=== PATIENT | male | born 1930 | race Hispanic/Latino ===

== ENCOUNTER 2017-10-16 18:44 | Emergency (ER) | payer MEDICARE ==
[2017-10-16] MEDS ORDERED: Acetaminophen 500 MG TAB ONE (19:07)
[2017-10-16 20:09] LABS: #Eosinphils 0.1 thou/uL (0.0-0.7); #Lymphocytes 0.6 thou/uL (1.20-3.40); #Monocytes 0.6 thou/uL (0.11-0.59); #Neutrophils 7.3 thou/uL (1.40-6.50); %Basophils 0.2 % (0.0-1.0); %Eosinophils 0.8 % (0.0-10.0); %Lymphocytes 7.1 % (21.0-51.0); %Monocytes 6.9 % (0.0-10.0); Hemoglobin 11.4 g/dL (14.0-18.0); Mean Corpuscular HGB CONC 32.3 g/dL (32.0-36.0); Mean Corpuscular Hemoglobin 28.9 pg (27.0-31.0); Mean Corpuscular Volume 89.3 fl (80.0-94.0); Mean Platelet Volume 6.2 fL (7.4-10.4); Platelet Count 290 thou/uL (130-400); RBC Distribution Width 12.2 % (11.5-14.5); Red Blood Cell (RBC) Count 3.96 mill/uL (4.70-6.10); White Blood Cell (WBC) Count 8.6 thou/uL (4.8-10.8)
[2017-10-16 20:25] LABS: ALT (SGPT) 10 U/L (8-55); AST (SGOT) 18 U/L (5-34); Albumin 3.3 g/dL (3.4-4.8); Alkaline Phosphatase 58 U/L (40-150); Anion Gap 13 mmol/L (10-20); BUN (Urea Nitrogen) 12 mg/dL (8.4-25.7); Bilirubin, Total 1.4 mg/dL (0.2-1.2); CK (CPK) 188 U/L (30-200); Calc. Creatinine Clearance 0 mL/min (70-130); Calcium 9.6 mg/dL (7.8-10.44); Carbon Dioxide 23 mmol/L (23-31); Chloride 103 mmol/L (98-107); Estimated GFR-MDRD 57; Globulin 3.5 g/dL (2.4-3.5); Glucose 126 mg/dL (83-110); Potassium 3.7 mmol/L (3.5-5.1); Protein, Total 6.8 g/dL (5.8-8.1); Sodium 135 mmol/L (136-145)
[2017-10-16 20:28] LABS: CKMB 3.4 ng/mL (0-6.6); Troponin I 0.089 ng/mL (< 0.028)
[2017-10-16 20:30] LABS: Bilirubin Negative (Negative); Blood, Urine Trace (Negative); Clarity CLEAR (Clear); Glucose, Urine (Dipstick) Negative (Negative); Leukocyte Negative (Negative); Nitrite Negative (Negative); Protein, Urine (Dipstick) 100 mg/dL (Neg-Trace); Specific Gravity, Urine 1.022 (1.002-1.036); pH, Urine 5.5 (5.0-9.0)
[2017-10-16 20:32] LABS: Bacteria/HPF None Seen HPF (None Seen); Hyaline Casts/LPF 0-3 HYALINE CAST LPF (0-3 Hyaline); Pathc Cast-AUWi Flag 0.54 (0-2.49); Squamous Epithelial 0-3 HPF (0-3); WBC/HPF 0-3 HPF (0-3)
--- NOTE | 2017-10-16 21:26 | RAD ---
AP VIEW OF THE CHEST: INDICATIONS: History of falls with cough. COMPARISON: Prior exam dated 05/13/2017. FINDINGS: The cardiomediastinal silhouette is normal. There are vascular calcifications involving the aortic a rch, which are stable. No confluent air space opacity, pleural effusion, or pneumothorax is evident. No definite acute osseous abnormality is identified. IMPRESSION: No acute cardiopulmonary abnormality. POS: [facility]
--- NOTE | 2017-10-16 21:28 | RAD ---
FOUR VIEWS OF THE LEFT ELBOW: INDICATIONS: Fall with left elbow pain. FINDINGS: There is no joint capsular distention. There is mild osteoarthrosis of the left elbow joint. Radial capitellar alignment is normal appearing. Enthesophyte change is seen off the olecranon. IMPRESSION: 1. No acute osseous abnormality. 2. Mild left elbow osteoarthrosis. POS: [facility]
== END 2017-10-16 21:36 | disposition home or self-care (01) ==
LOC: ERS 18:44
DX: J11.1 Influenza due to unidentified influenza virus with other respiratory manifestations (principal); I48.91 Unspecified atrial fibrillation; I49.9 Cardiac arrhythmia, unspecified; I10 Essential (primary) hypertension; J45.909 Unspecified asthma, uncomplicated; Z86.73 Personal history of transient ischemic attack (TIA), and cerebral infarction without residual deficits; Z87.891 Personal history of nicotine dependence
CPT/HCPCS: 36415; 71010; 80053; 81003; 81015; 82550; 82553; 83605; 84484; 85025; 87086; 93005

== ENCOUNTER 2017-10-27 08:09 | Observation (INO) | payer MEDICARE ==
[2017-10-27 09:36] LABS: #Basophils 0.1 thou/uL (0.0-0.2); #Eosinphils 0.3 thou/uL (0.0-0.7); #Lymphocytes 1.5 thou/uL (1.20-3.40); #Monocytes 0.8 thou/uL (0.11-0.59); %Basophils 0.6 % (0.0-1.0); %Lymphocytes 15.3 % (21.0-51.0); %Monocytes 8.4 % (0.0-10.0); %Neutrophils 72.7 % (42.0-75.0); Hemoglobin 12.1 g/dL (14.0-18.0); Mean Corpuscular HGB CONC 31.5 g/dL (32.0-36.0); Mean Corpuscular Hemoglobin 28.2 pg (27.0-31.0); Mean Corpuscular Volume 89.5 fl (80.0-94.0); Mean Platelet Volume 7.2 fL (7.4-10.4); Platelet Count 321 thou/uL (130-400); RBC Distribution Width 12.1 % (11.5-14.5); Red Blood Cell (RBC) Count 4.28 mill/uL (4.70-6.10); White Blood Cell (WBC) Count 9.6 thou/uL (4.8-10.8)
[2017-10-27 09:56] LABS: ALT (SGPT) 9 U/L (8-55); AST (SGOT) 15 U/L (5-34); Albumin 3.5 g/dL (3.4-4.8); Alkaline Phosphatase 64 U/L (40-150); Anion Gap 10 mmol/L (10-20); BUN (Urea Nitrogen) 13 mg/dL (8.4-25.7); Bilirubin, Total 1.2 mg/dL (0.2-1.2); CK (CPK) 47 U/L (30-200); Calc. Creatinine Clearance 0 mL/min (70-130); Carbon Dioxide 26 mmol/L (23-31); Chloride 106 mmol/L (98-107); Estimated GFR-MDRD 57; Globulin 3.9 g/dL (2.4-3.5); Glucose 101 mg/dL (83-110); Lipase 9 U/L (8-78); Protein, Total 7.4 g/dL (5.8-8.1); Sodium 138 mmol/L (136-145)
[2017-10-27 09:57] LABS: CKMB 1.2 ng/mL (0-6.6); Troponin I 0.027 ng/mL (< 0.028)
--- NOTE | 2017-10-27 10:11 | RAD ---
2 VIEWS CHEST: Date: 10/27/17 PROVIDED CLINICAL HISTORY: Right-sided chest pain. FINDINGS: Comparison made with the study dated 10/16/17. Cardiac silhouette is upper limits of normal in size. There is stable blunting of the right costophre paige angle that may reflect pleural fluid and/or pleural scarring. The lungs appear clear. There is no pneumothorax apparent. The bony thorax appears grossly intact. IMPRESSION: No evidence for an acute cardiopulmonary process. POS: [facility]
--- NOTE | 2017-10-27 11:09 | CT ---
CT PULMONARY ANGIOGRAM WITH IV CONTRAST AND 3D MIP RECONSTRUCTIONS: Date: 10/27/17 PROVIDED CLINICAL HISTORY: Right-sided chest pain. FINDINGS: Comparison made with the study dated 05/08/17. There is no evidence for central or segmental pulmonary embolus. Vascular calcification, including co ronary calcium, is seen. There is no evidence for thoracic lymph node enlargement. There is a small right pleural effusion. There is a heterogeneous predominantly enhancing mass at the right lung base measuring at least 5.3 cm in greatest transverse dimension. It is uncertain on the b asis of this examination whether this mass is pleural, diaphragmatic, or less likely hepatic in origi n. There is some thickening of the adjacent pleura. There is volume loss at the right lung base. Lung s appear otherwise clear. No left-sided pleural effusion, additional area of pleural abnormality, or pneumothorax apparent. The visualized portions of the upper abdomen demonstrate an otherwise unremarkable CT appearance. The osseous structures demonstrate no concerning osteoblastic or osteolytic lesions. IMPRESSION: 1. Heterogeneously enhancing mass involving the region of the posterior right hemidiaphragm as descr ibed above. The exact origin of this mass is not certain on the basis of this study. Pleural, diaphra gmatic, and less likely hepatic etiologies are possible. Neoplasm is favored, though infection could also be considered. 2. Mild right pleural effusion with some associated pleural thickening. 3. No evidence for central or segmental pulmonary embolus. 4. Vascular calcification including coronary calcium. POS: [facility]
[2017-10-27] MEDS ORDERED: cefTRIAXone\\ROCEPHIN 2 GM in Sodium Chloride 0.9% 100 ML IVPB SCH (11:30)
[2017-10-27] MEDS ORDERED: Azithromycin 500 MG in Sodium Chloride 0.9% 250 ML 250 ML IVPB ONE (11:30)
[2017-10-27] MEDS ORDERED: Iopamidol 370 76% 100 ML VIAL ONE (11:54)
[2017-10-27] MEDS ORDERED: Ondansetron ODT 4 MG TAB SL PRN (13:13)
[2017-10-27] MEDS ORDERED: Acetaminophen 325 MG TAB PO PRN (13:13)
[2017-10-27] MEDS ORDERED: Ondansetron HCl/PF 4 MG/2 ML Vial IVP PRN ×2 (13:13→15:44)
[2017-10-27 13:35] VITALS: BMI 26.5
[2017-10-27] MEDS ORDERED: hydrALAZINE 20 MG/ML VIAL SLOW IVP PRN (15:44)
[2017-10-27] MEDS ORDERED: Acetaminophen 500 MG TAB PO PRN (15:44)
[2017-10-27] MEDS ORDERED: Ondansetron ODT 4 MG TAB PO PRN (15:44)
[2017-10-27] MEDS ORDERED: cloNIDine 0.1 MG TAB PO PRN (15:44)
[2017-10-27] MEDS ORDERED: traMADol HCl 50 MG TAB PO PRN (15:44)
[2017-10-27] MEDS ORDERED: Benzonatate 100 MG CAP PO PRN (15:59)
[2017-10-27] MEDS: Mometasone/Formoterol 120 PUFF INHALER INH SCH (19:20)
[2017-10-27] MEDS: Famotidine 20 MG TAB PO SCH (20:10)
[2017-10-27] MEDS: Metoprolol Tartrate 25 MG TAB PO SCH ×2 (20:11→23:02)
[2017-10-27] MEDS ORDERED: Finasteride 5 MG TAB PO SCH (21:00)
[2017-10-27] MEDS ORDERED: Metoprolol Tartrate 50 MG TAB PO SCH (21:00)
[2017-10-27] MEDS ORDERED: Terazosin HCl 5 MG CAP PO SCH (21:00)
[2017-10-27] MEDS ORDERED: Amiodarone 200 MG TAB PO SCH (21:00)
--- NOTE | 2017-10-27 21:16 | HP ---
DATE OF ADMISSION: 10/27/2017 PRIMARY CARE PHYSICIAN: Dr. Nelly Hernandez. CHIEF COMPLAINT: Rib pain. HISTORY OF PRESENT ILLNESS: This is an 87-year-old male who presented to [facility] complaining of right lateral and lower rib pain over the last 1-2 weeks worsening in the last 24 hours. Patient states with direct pressure to his rib cage, lying on his rib cage, cough ing, or taking a deep breath. He notices pain in the area. Patient states he had a fall approximate ly 5 years prior to this evaluation and thinks he may have had an injury to the area, but is unsure. Patient states he was diagnosed with influenza at the end of 09/2017 and treated with Tamiflu. Cecile ent denies any specific prominent cough, fever, chills, exposure history, or family members with fanny lar symptoms. Patient denied any recent fall or injury, swelling to the rib cage, redness, or skin r aida. Patient states he is currently on his immunizations and denies any recent new medications other than the Tamiflu, which he took at the end of 09/2017. Patient denies any prominent weight loss, ni ght sweats, hemoptysis, change to bowel habits, appetite, nausea, vomiting, or dysuria. Patient andres ed taking any other home remedies for relief other than limiting lying on his right side at nighttime . In the emergency room, patient underwent general evaluation including chest imaging showing plain radiographs of the chest showing no acute process. CT angiogram of the chest dated 10/27/2017 showed questionable heterogeneous mass in the posterior right lower lobe with unclear etiology. Mild right pleural effusion noted with some pleural thickening with questionable scarring. No evidence for pul monary embolus was noted. Patient received IV Rocephin and Zithromax as well as bronchodilator thera py x1 dose in the emergency room. PAST MEDICAL HISTORY: 1. Atrial fibrillation with chronic anticoagulation. 2. Hypertension. 3. Dyslipidemia. 4. History of diastolic heart failure. 5. Chronic kidney disease, stage 2-3. 6. Gastroesophageal reflux disease. 7. History of TIA x2. 8. Benign prosthetic hyperplasia. 9. History of questionable empyema. PAST SURGICAL HISTORY: 1. Status post cardiac ablation. 2. Status post left total knee arthroplasty. 3. Status post right rotator cuff repair. 4. Status post cholecystectomy. CURRENT MEDICATIONS: List may not be complete and will need to be confirmed with family members: 1. Amiodarone 200 mg p.o. t.i.d. 2. Lipitor 20 mg p.o. at bedtime. 3. Proscar 5 mg p.o. at bedtime. 4. Hydrochlorothiazide 12.5 mg p.o. daily. 5. Lisinopril 20 mg 1 tab p.o. daily. 6. Lopressor 50 mg p.o. b.i.d. 7. Xarelto 15 mg p.o. daily. 8. Hytrin 5 mg p.o. at bedtime. ALLERGIES: PENICILLIN. FAMILY HISTORY: Positive for diabetes. SOCIAL HISTORY: Patient is . Resides in [place], [place] living independently in an apartment. 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 No current alcohol, tobacco, or illicit drug use. Remote history of tobacco use, quitting greater than 30 years prior to this evaluation. Patient richter s ambulate with the use of a 4-prong cane. REVIEW OF SYSTEMS: The following complete review of systems was otherwise negative, except as stated per HPI: Constitutional: Weight loss or gain, ability to conduct usual activities. Skin: Rash, itching. Eyes: Double vision, pain. ENT/Mouth: Nose bleeding, neck stiffness, pain, tenderness. Cardiovascular: Palpitations, dyspnea on exertion, orthopnea. Respiratory: Shortness of breath, wheezing, cough, hemoptysis, fever, or night sweats. Gastrointestinal: Poor appetite, abdominal pain, heartburn, nausea, vomiting, constipation, or diarr hea. Genitourinary: Urgency, frequency, dysuria, nocturia. Musculoskeletal: Pain, swelling. Neurologic/Psychiatric: Anxiety, depression. Allergy/Immunologic: Skin rash, bleeding tendency. PHYSICAL EXAMINATION: VITAL SIGNS: On admission blood pressure 150/66, pulse 55, respiratory rate 18, temperature 98.8 deg jerry Fahrenheit, O2 saturation 95% on room air. GENERAL APPEARANCE: This is an 87-year-old male, alert and oriented x3, pleasant, conversan t, appearing younger than stated age in no acute distress. HEENT: Pupils are equal, round, and reactive to light and accommodation. Extraocular muscles are in tact. No scleral icterus, no conjunctival injection. Nares patent. OP is clear. NECK: Supple. No cervical adenopathy, no thyromegaly, no carotid bruits, no JVD appreciated. Cervi anju spine with full active and passive range of motion. No meningeal signs appreciated. CHEST: Lungs are clear to auscultation bilaterally. Mild tenderness to palpation of the right later al rib cage in the mid axillary line without palpable mass. No erythema or skin rash noted. CARDIOVASCULAR: S1, S2 with 2/6 systolic ejection murmur in the right upper sternal border. ABDOMEN: Rounded, soft, nontender, nondistended. Bowel sounds are positive in all four quadrants. There is no hepatosplenomegaly, no abdominal bruits, no rebound or guarding appreciated. EXTREMITIES: Warm and dry with fair turgor. No clubbing, cyanosis, or asymmetric edema appreciated. Pulses palpable distally at the dorsalis pedis, posterior tibial, and popliteal arteries bilaterall y. Capillary refill less than 2 seconds. NEUROLOGIC: Cranial nerves II-XII are grossly intact. No focal or lateralizing signs appreciated. PERTINENT LABORATORY AND X-RAY FINDINGS: Basic metabolic profile within normal limits. LFTs within normal limits. BNP 327 previously noted 552 on 05/14/2017. Lipase 9. CBC showed a white blood cell count of 9.6, hemoglobin 12, hematocrit 38, platelet count 321 with 73% neutrophils. Portable chest x-ray dated 10/27/2017 showed no acute cardiopulmonary process. Blunting of the right costophrenic angle reflecting pleural fluid and/or scarring. CT angiogram of the chest dated 10/27/2017 showed qu estionable enhancing mass in the posterior right hemidiaphragm. Exact origin is unclear on the basis of this study. Mild right pleural effusion/scarring noted. No evidence for pulmonary embolus. EKG dated 10/27/2017 by my interpretation shows sinus bradycardia with heart rates in the 50s. Normal R -wave progression noted in the precordial leads. Right bundle branch block pattern noted. Left axis deviation noted. No acute ST-T wave changes appreciated. ASSESSMENT AND PLAN: 1. Right lateral chest wall pain. Etiology is unclear. Questionable musculoskeletal pain versus in trathoracic process. CT imaging of the chest showing questionable mass versus scarring or pleural th ickening from prior infection. No current evidence to suggest an acute infectious process. We will consult Pulmonology Service for review of CT imaging to obtain further recommendations and an opinion regarding both processes. Continue pain control as clinically indicated. 2. Chronic kidney disease, stage 2-3. Stable currently. Avoid nephrotoxic agents and contrast medi a. Repeat creatinine in the a.m. 3. History of atrial fibrillation with current sinus mechanism. Continue symptomatic and supportive measures. Continue metoprolol 25 mg p.o. b.i.d. Continue Xarelto 15 mg p.o. daily. 4. Hypertension. Resume home antihypertensive regimen and monitor clinical response. 5. Prophylaxis. Sequential compression devices while in bed. Pepcid 20 mg p.o. b.i.d. 6. Code status is FULL. Surrogate medical decision maker is patient's son.
[2017-10-28 04:40] LABS: Anion Gap 4 mmol/L (10-20); BUN (Urea Nitrogen) 13 mg/dL (8.4-25.7); Calc. Creatinine Clearance 46 mL/min (70-130); Calcium 9.2 mg/dL (7.8-10.44); Carbon Dioxide 30 mmol/L (23-31); Chloride 106 mmol/L (98-107); Estimated GFR-MDRD 57; Glucose 97 mg/dL (83-110); Potassium 4.1 mmol/L (3.5-5.1); Sodium 136 mmol/L (136-145)
[2017-10-28 05:12] VITALS: BP 159/68
[2017-10-28 05:19] LABS: Band 2 % (5-11); Hemoglobin 10.3 g/dL (14.0-18.0); Lymphocytes 7 % (21-51); MDiff Complete? YES; Mean Corpuscular HGB CONC 31.6 g/dL (32.0-36.0); Mean Corpuscular Hemoglobin 28.3 pg (27.0-31.0); Mean Corpuscular Volume 89.4 fl (80.0-94.0); Mean Platelet Volume 6.7 fL (7.4-10.4); Monocytes 5 % (0-10); Neutrophil 86 % (42-75); PLT Morphology Comment Appears Adequate; Platelet Count 278 thou/uL (130-400); RBC Morphology Normal; Red Blood Cell (RBC) Count 3.64 mill/uL (4.70-6.10); White Blood Cell (WBC) Count 10.8 thou/uL (4.8-10.8)
[2017-10-28 08:05] VITALS: TEMP 98.6
[2017-10-28] MEDS: Mometasone/Formoterol 120 PUFF INHALER INH SCH (08:29)
--- NOTE | 2017-10-28 08:57 | ULT ---
RIGHT UPPER QUADRANT ULTRASOUND: Date: 10/28/17 CLINICAL HISTORY: Mass, right upper quadrant. FINDINGS: There is a heterogeneous region of echotexture abutting the posterior aspect of the right hepatic lob e. This is inseparable from the adjacent right pleura with complex adjacent right pleural fluid seen. There is a mild nodularity to the hepatic contour. Gallbladder is not visualized. The common duct is normal at 4.0 mm. IMPRESSION: Abnormal heterogeneous mass abutting the right hepatic lobe inseparable from the adjacent pleura with adjacent complex appearing right pleural fluid. This favors a mass that is extrinsic to the liver wh ich results in encroachment upon the hepatic parenchyma, although is difficult to further characteriz e. Entities such as pleural based malignancy or metastatic lesion should be considered. POS: [facility]
[2017-10-28] MEDS ORDERED: Lisinopril 20 MG TAB PO SCH (09:00)
[2017-10-28] MEDS ORDERED: Hydrochlorothiazide 25 MG TAB PO SCH (09:00)
[2017-10-28] MEDS ORDERED: Rivaroxaban 15 MG TAB PO SCH (09:00)
[2017-10-28] MEDS ORDERED: Amiodarone 200 MG TAB PO SCH (09:00)
[2017-10-28] MEDS: Metoprolol Tartrate 25 MG TAB PO SCH (09:19)
[2017-10-28] MEDS: Famotidine 20 MG TAB PO SCH (09:19)
--- NOTE | 2017-10-28 17:12 | DIS ---
DATE OF ADMISSION: 10/27/2017 DATE OF DISCHARGE: 10/28/2017 DISCHARGE DIAGNOSES: 1. Question of right lower lobe pneumonia versus mass with effusion. 2. Right lateral chest wall pain. 3. Chronic kidney disease stage II-III. 4. History of atrial fibrillation with current sinus mechanism on chronic anticoagulation with Xarel to. 5. Hypertension, stable. CONSULTATION: Dr. Bennett with Pulmonology Service. PERTINENT LABORATORY DATA AND X-RAY FINDINGS: Creatinine ranged between 1.20-1.21 with estimated GFR of 57. Calcium ranged between 9.2-10.0. LFTs within normal limits. Troponin negative x1. BNP 327 , previously noted 552, 05/14/2017, albumin 3.5, lipase 9. CBC showed a white blood cell count rangi ng between 9.6-10.8, hemoglobin ranged between 10.3-12.1, platelet count ranged between 278-321. Blo od cultures x2 from 10/27/2017 showed no growth to date. Portable chest x-ray dated 10/27/2017 showe d no acute cardiopulmonary process. Blunting of the right costophrenic angle noted. CT angiogram of the chest dated 10/27/2017 showed heterogeneous enhancing mass in the region of the posterior right hemidiaphragm. Exact origin uncertain. Mild associated right pleural effusion with pleural thickeni ng. No evidence for pulmonary embolus. Abdominal ultrasound dated 10/28/2017 showed heterogeneous m ass abutting the right hepatic lobe inseparable from adjacent pleura with complex appearing right ple ural fluid. Mass appears extrinsic to the liver. HOSPITAL COURSE: Patient was observed on the telemetry unit after initially presenting with right la teral chest wall pain. The patient underwent multiple chest imaging modalities including plain radio graphs. CT angiogram of the chest and abdominal ultrasound showing questionable mass-like density in the right lower lobe abutting the posterior hepatic lobe. The patient was placed on IV antibiotic t herapy after concern for possible infectious process with associated right pleural effusion. Telepho paige consultation was obtained by the Pulmonology Service with recommendations for outpatient followup and monitoring. The patient remained clinically stable throughout the hospital course with screenin g metabolic survey showing essentially negative findings. The patient remained afebrile, tolerated r egular oral intake and voiding appropriately. Telemetry monitoring showed sinus bradycardia without evidence of acute arrhythmia or dysrhythmia. The patient overall remained clinically stable through the hospital course and ready for discharge on 10/28/2017. DISCHARGE MEDICATIONS: 1. Levaquin 500 mg 1 tab p.o. daily x10 days. 2. Amiodarone 200 mg 1 tab p.o. daily. 3. Lipitor 20 mg p.o. at bedtime. 4. Tessalon Perles 100 mg p.o. t.i.d. p.r.n. 5. Symbicort 160/4.5 one puff inhaled b.i.d. 6. Proscar 5 mg p.o. at bedtime. 7. Hydrochlorothiazide 12.5 mg p.o. daily. 8. Lisinopril 20 mg 1 tab p.o. daily. 9. Metoprolol 25 mg p.o. b.i.d. 10. Xarelto 15 mg p.o. daily. 11. Hytrin 5 mg p.o. at bedtime. FOLLOWUP: The patient may follow up with his primary care provider, Dr. Nelly Hernandez within 7 days of discharge. The patient will also follow up with Dr. David Bennett within 7-10 days of discharge. CONDITION ON DISCHARGE: Stable. ACTIVITY: Ad luke. DIET: Regular. CODE STATUS: FULL. DISPOSITION: Home 10/28/2017.
== END 2017-10-28 12:18 | disposition home or self-care (01) ==
LOC: ERS 08:09 → 2SW 12:48
PROVIDERS: ADMIT Family Medicine; ATTEND Family Medicine
DX: R07.89 Other chest pain (principal); I13.0 Hypertensive heart and chronic kidney disease with heart failure and stage 1 through stage 4 chronic kidney disease, or unspecified chronic kidney disease; N18.3 Chronic kidney disease, stage 3 (moderate); I50.30 Unspecified diastolic (congestive) heart failure; I48.91 Unspecified atrial fibrillation; E78.5 Hyperlipidemia, unspecified; K21.9 Gastro-esophageal reflux disease without esophagitis; N40.0 Benign prostatic hyperplasia without lower urinary tract symptoms; Z79.01 Long term (current) use of anticoagulants; Z79.899 Other long term (current) drug therapy; Z88.0 Allergy status to penicillin; Z96.652 Presence of left artificial knee joint; Z90.49 Acquired absence of other specified parts of digestive tract; Z98.890 Other specified postprocedural states; Z87.891 Personal history of nicotine dependence; Z86.73 Personal history of transient ischemic attack (TIA), and cerebral infarction without residual deficits
CPT/HCPCS: 71046; 71275; 76705; 80048; 80053; 82550; 82553; 83690; 83880; 84484; 85007; 85025; 85027; 87040; 93005; 94640 ×3; 96365; 96367; 99285; G0378; 36415; J0456; J0696; J7050; J7620

== ENCOUNTER 2018-01-25 11:00 | Outpatient (CLI) | payer MEDICARE ==
[~2018-01-25 11:00] MED LIST: Iopamidol 370 76% 100 ML VIAL ONE
--- NOTE | 2018-01-25 12:38 | CT ---
CT THORAX WITH IV CONTRAST: 01/25/2018 HISTORY: Lung mass. Scarring. COMPARISON: 10/27/2017 FINDINGS: Again noted is a small right pleural effusion with passive atelectasis. Also, again noted is the het erogeneously enhancing mass like density at the right lung base, centered at the level of the diaphra gm, posteriorly. This has a multiloculated appearance and measures 8 cm x 3.5 cm on the current stud y and previously measured 5.3 cm in maximal dimensions on the prior exam. The exact location of this heterogeneous mass like structure is uncertain. I am unsure if this is in the right lung base or wh ether this is just beneath the hemidiaphragms in the right upper quadrant. Again, this is centered i n the region of the diaphragm. This could be related to an abscess collection/infection but, again, mass in this region is a possibility. The left lung is clear. Vascular calcifications are seen in the coronary arteries and thoracic aorta. No other interval damian ge. IMPRESSION: 1. Interval enlargement of the multiloculated cystic and solid structure at the right lung base, azeb tered in the region of the hemidiaphragm, posteriorly and posterolaterally. This could be related to an infectious process, but a neoplastic process is also a possibility. There is a stable small righ t pleural effusion and atelectasis with mild pleural thickening also noted at the right lung base. 2. Post cholecystectomy changes. 3. Prominent vascular calcifications. POS: [facility]
== END 2018-01-25 11:01 | disposition home or self-care (01) ==
LOC: CT 11:00
PROVIDERS: ATTEND Internal Medicine Pulmonary Disease
DX: R91.8 Other nonspecific abnormal finding of lung field (principal); J98.4 Other disorders of lung; J90 Pleural effusion, not elsewhere classified; J98.11 Atelectasis; I70.90 Unspecified atherosclerosis; Z98.890 Other specified postprocedural states; Z90.49 Acquired absence of other specified parts of digestive tract
CPT/HCPCS: 71260; 82565

== ENCOUNTER 2018-02-16 14:20 | Emergency (ER) | payer MEDICARE ==
[2018-02-16 14:54] LABS: Bilirubin Negative (Negative); Blood, Urine Negative (Negative); Clarity CLEAR (Clear); Glucose, Urine (Dipstick) Negative (Negative); Leukocyte Negative (Negative); Nitrite Negative (Negative); Protein, Urine (Dipstick) Negative (Neg-Trace); Specific Gravity, Urine 1.018 (1.002-1.036); pH, Urine 5.5 (5.0-9.0)
[2018-02-16 15:29] LABS: #Eosinphils 0.1 thou/uL (0.0-0.7); #Lymphocytes 1.3 thou/uL (1.20-3.40); #Monocytes 0.9 thou/uL (0.11-0.59); #Neutrophils 7.5 thou/uL (1.40-6.50); %Basophils 0.4 % (0.0-1.0); %Eosinophils 0.9 % (0.0-10.0); %Lymphocytes 13.2 % (21.0-51.0); %Monocytes 8.7 % (0.0-10.0); %Neutrophils 76.8 % (42.0-75.0); Hemoglobin 9.9 g/dL (14.0-18.0); Mean Corpuscular HGB CONC 32.3 g/dL (32.0-36.0); Mean Corpuscular Hemoglobin 26.4 pg (27.0-31.0); Mean Corpuscular Volume 81.7 fl (80.0-94.0); Mean Platelet Volume 6.8 fL (7.4-10.4); Platelet Count 323 thou/uL (130-400); RBC Distribution Width 13.7 % (11.5-14.5); Red Blood Cell (RBC) Count 3.76 mill/uL (4.70-6.10); White Blood Cell (WBC) Count 9.8 thou/uL (4.8-10.8)
--- NOTE | 2018-02-16 15:49 | RAD ---
THREE VIEWS LUMBAR SPINE 02/16/18 HISTORY: Low back pain. COMPARISON: None. FINDINGS: Five lumbar type vertebral bodies. Vertebral body height is maintained. No fracture. There is extensi ve osteophyte formation of the lumbar spine. Atherosclerosis is noted. IMPRESSION: Extensive degenerative changes with osteophyte formation. No obvious fractures. Barring any contraind ications, nonemergent MRI of the lumbar spine is recommended. POS: [facility]
[2018-02-16 15:56] LABS: ALT (SGPT) 8 U/L (8-55); AST (SGOT) 11 U/L (5-34); Albumin 2.8 g/dL (3.4-4.8); Alkaline Phosphatase 59 U/L (40-150); Anion Gap 4 mmol/L (10-20); BUN (Urea Nitrogen) 27 mg/dL (8.4-25.7); Bilirubin, Total 0.9 mg/dL (0.2-1.2); Calc. Creatinine Clearance 0 mL/min (70-130); Calcium 9.3 mg/dL (7.8-10.44); Carbon Dioxide 27 mmol/L (23-31); Chloride 105 mmol/L (98-107); Estimated GFR-MDRD 42; Globulin 3.4 g/dL (2.4-3.5); Glucose 105 mg/dL (83-110); Protein, Total 6.2 g/dL (5.8-8.1); Sodium 132 mmol/L (136-145)
== END 2018-02-16 17:35 | disposition home or self-care (01) ==
LOC: ERS 14:20
DX: M54.5 Low back pain (principal); I48.91 Unspecified atrial fibrillation; I10 Essential (primary) hypertension; J45.909 Unspecified asthma, uncomplicated; Z87.891 Personal history of nicotine dependence; Z79.899 Other long term (current) drug therapy
CPT/HCPCS: 36415; 72100; 80053; 81003; 85025

== ENCOUNTER 2018-02-25 19:51 | Observation (INO) | payer MEDICARE ==
[2018-02-25 20:54] LABS: #Lymphocytes 1.2 thou/uL (1.20-3.40); #Monocytes 0.9 thou/uL (0.11-0.59); #Neutrophils 9.3 thou/uL (1.40-6.50); %Basophils 0.2 % (0.0-1.0); %Eosinophils 0.4 % (0.0-10.0); %Lymphocytes 10.4 % (21.0-51.0); %Monocytes 7.6 % (0.0-10.0); %Neutrophils 81.5 % (42.0-75.0); Mean Corpuscular Hemoglobin 26.3 pg (27.0-31.0); Mean Platelet Volume 6.7 fL (7.4-10.4); Platelet Count 349 thou/uL (130-400); RBC Distribution Width 13.9 % (11.5-14.5); Red Blood Cell (RBC) Count 3.81 mill/uL (4.70-6.10); White Blood Cell (WBC) Count 11.4 thou/uL (4.8-10.8)
[2018-02-25 21:00] LABS: INR-International Normal Ratio 1.4; Prothrombin Time 16.9 SEC (12.0-14.7)
--- NOTE | 2018-02-25 21:01 | CT ---
CT OF THE BRAIN WITHOUT CONTRAST 02/25/18 INDICATION: Lightheaded and history of all hitting head earlier today. COMPARISON: Prior exam dated 05/08/17. FINDINGS: There is stable remote lacunar infarctions involving the left thalamus and right globus pallidus. The re is generalized cerebral and cerebellar atrophy. There is mild chronic small vessel white matter is chemic change which is similar to the comparison dated 05/08/17. No acute infarct, hemorrhage, or hyd rocephalus is present. Mastoid air cells are clear. The paranasal sinuses are clear. Skull is intact. IMPRESSION: 1. No acute intracranial abnormality. 2. Stable chronic findings as above. POS: [facility]
--- NOTE | 2018-02-25 21:03 | RAD ---
AP VIEW OF THE CHEST: 02/25/18 INDICATION: Fall with chest pain. FINDINGS: The lungs are clear. No pleural effusion or pneumothorax is grossly evident. No definite acute osseou s abnormality is evident. Heart size is within normal limits. There are vascular calcifications invol ving the aortic arch is stable to a comparison dated 10/16/17. IMPRESSION: No acute cardiopulmonary abnormality. POS: [facility]
--- NOTE | 2018-02-25 21:10 | CT ---
CT CERVICAL SPINE WITHOUT CONTRAST: 02/25/18 INDICATION: Fall with neck pain. FINDINGS: There is moderate to severe multilevel spondylosis of the cervical spine. No acute fracture or sublux ation is evident. Prevertebral soft tissues are within normal limits. Lung apices are clear. Cranioce rvical junction appears within normal limits. IMPRESSION: 1. No acute osseous abnormality. 2. 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 POS: [facility]
[2018-02-25 21:15] LABS: ALT (SGPT) 11 U/L (8-55); AST (SGOT) 14 U/L (5-34); Albumin 2.9 g/dL (3.4-4.8); Alkaline Phosphatase 61 U/L (40-150); Anion Gap 9 mmol/L (10-20); BUN (Urea Nitrogen) 31 mg/dL (8.4-25.7); Bilirubin, Total 0.8 mg/dL (0.2-1.2); Calc. Creatinine Clearance 0 mL/min (70-130); Calcium 9.6 mg/dL (7.8-10.44); Carbon Dioxide 26 mmol/L (23-31); Chloride 104 mmol/L (98-107); Estimated GFR-MDRD 38; Globulin 3.5 g/dL (2.4-3.5); Glucose 120 mg/dL (83-110); Potassium 4.4 mmol/L (3.5-5.1); Protein, Total 6.4 g/dL (5.8-8.1); Sodium 135 mmol/L (136-145)
[2018-02-25 21:18] LABS: CKMB 0.7 ng/mL (0-6.6); Troponin I Less than 0.010 ng/mL (< 0.028)
[2018-02-25] MEDS ORDERED: Ondansetron HCl/PF 4 MG/2 ML Vial IVP PRN ×2 (23:08→23:20)
[2018-02-25] MEDS ORDERED: Ondansetron ODT 4 MG TAB SL PRN (23:08)
[2018-02-25] MEDS ORDERED: Acetaminophen 325 MG TAB PO PRN ×2 (23:08→23:20)
[2018-02-25] MEDS ORDERED: Loperamide HCl 2 MG CAP PO PRN (23:20)
[2018-02-25] MEDS ORDERED: Senokot 8.6 MG TAB PO PRN (23:20)
[2018-02-25] MEDS ORDERED: Mag-Al 1200 mg/1200 mg/30 ML UDCUP PO PRN (23:20)
[2018-02-25] MEDS ORDERED: Milk Of Magnesia 30 ML UDCUP PO PRN (23:20)
[2018-02-25] MEDS ORDERED: Ondansetron ODT 4 MG TAB PO PRN (23:20)
[2018-02-25] MEDS ORDERED: PROVENTIL INHALER 6.7 G (200 INHALATIONS) INH PRN (23:44)
[2018-02-25 23:55] LABS: Troponin I 0.015 ng/mL (< 0.028)
--- NOTE | 2018-02-26 01:01 | HP ---
PRIMARY CARE PHYSICIAN: Dr. Nelly Hernandez. REASON FOR ADMISSION: Dehydration, acute kidney injury, frequent falls. HISTORY OF PRESENT ILLNESS: An 87-year-old male who has dementia. He lives alone at home. He ambul ates with a cane. He does not eat or drink regularly well and he lost almost 20-pound over last few months. At home, patient has having frequent falls, since October he has 5 times fall. Today, he fe ll down at home and he was getting out of bed. He did not have any head injury. He was not having a ny chest pain, palpitation. He did not lose consciousness. He is on Xarelto and that is why family member brought into emergency room for evaluation. In emergency room, patient was neurologically int act. His CT brain was negative for any acute process. His routine blood tests showed acute kidney f ailure. Patient was clinically appeared dehydrated. Subsequently, patient is being admitted to tele metry floor. He does not have any UTI symptoms. He does not have any constipation, diarrhea, melena, or hematoche ping. He does not have any fever, chills, UTI symptoms. He denies any chest pain, palpitation. REVIEW OF SYSTEMS: Please see my HPI for pertinent positive and negative. All other review of syste m reviewed and negative except as mentioned in the HPI: Constitutional: Weight loss or gain, abilit y to conduct usual activities. Skin: Rash, itching. Eyes: Double vision, pain. ENT/Mouth: Nose bleeding, neck stiffness, pain, tenderness. Cardiovascular: Palpitations, dyspnea on exertion, orth opnea. Respiratory: Shortness of breath, wheezing, cough, hemoptysis, fever, or night sweats. Shu rointestinal: Poor appetite, abdominal pain, heartburn, nausea, vomiting, constipation, or diarrhea. Genitourinary: Urgency, frequency, dysuria, nocturia. Musculoskeletal: Pain, swelling. Neurolog ic/Psychiatric: Anxiety, depression. Allergy/Immunologic: Skin rash, bleeding tendency. PAST MEDICAL HISTORY: Atrial fibrillation, chronic anticoagulation with Xarelto, hypertension, dysli pidemia, diastolic heart failure, CKD stage 2, gastroesophageal reflux disease, history of TIA x2, be nign enlargement of prostate. PAST SURGICAL HISTORY: Cardiac ablation, left total knee replacement, right rotator cuff repair, cho lecystectomy. PAST PSYCHIATRIC HISTORY: Reviewed and negative. CURRENT HOME MEDICATIONS: Ventolin HFA 2 puffs q.4 hourly p.r.n., amiodarone 200 mg p.o. daily, Lipi tor 20 mg p.o. at bedtime, vitamin D3 of 5000 units p.o. daily, Proscar 5 mg p.o. at bedtime, lisinop ril 40 mg p.o. daily, Toprol-XL 25 mg p.o. at bedtime, Xarelto 15 mg p.o. at bedtime, terazosin 5 mg p.o. at bedtime. ALLERGIES: PENICILLIN. FAMILY HISTORY: Diabetes, hypertension runs among several family members. SOCIAL HISTORY: Patient is living by himself in apartment. 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 No history of tobacco, alcohol, or illicit drug abuse. EMERGENCY ROOM COURSE: Reviewed. PHYSICAL EXAMINATION: VITAL SIGNS: Today blood pressure 153/51, pulse 64, respiratory rate 20, temperature 98.0, saturatio n 100% on room air, weight 74.8 kilograms. GENERAL: Patient is currently alert, awake, no obvious acute distress. HEAD: Normocephalic, atraumatic. EYES: Pupils round, reactive to light. Extraocular muscle intact. ENT: Oropharynx within normal limit, somewhat dry appearing mucous membrane, no oral lesion, no phar yngeal erythema, no exudate. NECK: Supple, no JVD, no thyromegaly, no carotid bruit, no jugular venous distention. LUNGS: Clear to auscultation without any rhonchi or rales. CARDIAC: S1, S2 regular, slight diastolic murmur noted at the apex. No gallop, no rub. ABDOMEN: Soft, bowel sounds present, nontender, nondistended. No organomegaly, no mass, no suprapub ic tenderness. BACK: Unremarkable. No CVA tenderness. EXTREMITIES: Upper extremity, passive movement of all joints are normal. Lower extremities: No justin ma. Good peripheral pulsation. SKIN: No skin rash. HEMATOLOGICAL: No lymphadenopathy. NEUROLOGIC: Patient is currently alert, awake, slightly confused. Head normocephalic, atraumatic. Cranial nerves grossly intact. Motor 5/5 in all four limbs. Sensation bilaterally symmetrical. Brittany ntar bilateral flexor. Reflexes symmetrical. Patient does have difficulty performing cerebellar sig n, but grossly looking cerebellar signs are normal. No focal neurological deficit noted at this poin t. SIGNIFICANT LABORATORY DATA: EKG showing normal sinus rhythm, incomplete right bundle branch block p attern. CT brain based on my review, no acute intracranial process. CT neck consistent with no frac ture or dislocation, but there is degenerative spine disease. Chest x-ray based on my review, no acu te cardiopulmonary process. CBC: WBC 11.4, hemoglobin 10.0, platelet 349. INR 1.4. BMP: Sodium 135, potassium 4.4, chloride 1 04, carbon dioxide 26, anion gap 9, BUN 31, creatinine 1.72, glucose 120, calcium 9.6. LFT: AST 14, ALT 11, alkaline phosphatase 61, albumin 2.9, CK-MB 0.7, troponin I is less than 0.010. ASSESSMENT AND PLAN: 1. Frequent fall. 2. Acute on chronic kidney failure, baseline chronic kidney disease, stage 2. 3. Dehydration. 4. Closed head injury without any bleeding. 5. Anemia, normocytic normochromic. 6. Chronic anticoagulation with Xarelto. 7. Atrial fibrillation on amiodarone. 8. Dyslipidemia on Lipitor. 9. Hypertension on lisinopril and Toprol-XL, rule out orthostatic hypotension. 10. Benign enlargement of prostate stable. PLAN: Observation to telemetry floor. Check orthostatic vitals, get echocardiography and carotid Do ppler to rule out any cardiac etiology as well as any carotid stenosis. PT, OT evaluation and possib le rehab screen before discharge. Gentle IV fluid overnight. Resume his home medication. Deep venous thrombosis prophylaxis. Patient is already on Xarelto therapy. Gastrointestinal prophyl axis. Pepcid 20 mg p.o. b.i.d. Code status: Patient is FULL CODE. Patient's sister is surrogate decision maker. Disposition plan based on clinical course, he may need rehabilitation placement. Plan of care discussed with the patient's family member at bedside.
[2018-02-26] MEDS: Sodium Chloride 0.9% 1,000 ML IV SCH ×2 (01:07→12:22)
[2018-02-26 01:36] LABS: Bilirubin Negative (Negative); Blood, Urine Negative (Negative); Clarity CLEAR (Clear); Glucose, Urine (Dipstick) Negative (Negative); Leukocyte Trace (Negative); Nitrite Negative (Negative); Protein, Urine (Dipstick) Negative (Neg-Trace)
[2018-02-26 01:39] LABS: Bacteria/HPF None Seen HPF (None Seen); Hyaline Casts/LPF 4-6 HYALINE CAST LPF (0-3 Hyaline); Pathc Cast-AUWi Flag 0.87 (0-2.49); RBC/HPF 0-3 HPF (0-3); Squamous Epithelial 0-3 HPF (0-3); WBC/HPF 0-3 HPF (0-3)
[2018-02-26 01:40] VITALS: BMI 24.3
[2018-02-26 03:13] LABS: #Eosinphils 0.1 thou/uL (0.0-0.7); #Lymphocytes 1.4 thou/uL (1.20-3.40); #Neutrophils 7.9 thou/uL (1.40-6.50); %Basophils 0.1 % (0.0-1.0); %Eosinophils 0.9 % (0.0-10.0); %Lymphocytes 13.6 % (21.0-51.0); %Monocytes 9.9 % (0.0-10.0); %Neutrophils 75.6 % (42.0-75.0); Hemoglobin 8.7 g/dL (14.0-18.0); Mean Corpuscular HGB CONC 31.9 g/dL (32.0-36.0); Mean Corpuscular Hemoglobin 26.1 pg (27.0-31.0); Mean Corpuscular Volume 81.7 fl (80.0-94.0); Mean Platelet Volume 6.6 fL (7.4-10.4); Platelet Count 320 thou/uL (130-400); RBC Distribution Width 13.9 % (11.5-14.5); Red Blood Cell (RBC) Count 3.35 mill/uL (4.70-6.10); White Blood Cell (WBC) Count 10.4 thou/uL (4.8-10.8)
[2018-02-26 03:26] LABS: Troponin I 0.012 ng/mL (< 0.028)
[2018-02-26 03:34] LABS: Anion Gap 6 mmol/L (10-20); BUN (Urea Nitrogen) 30 mg/dL (8.4-25.7); Calc. Creatinine Clearance 33 mL/min (70-130); Calcium 9.1 mg/dL (7.8-10.44); Carbon Dioxide 27 mmol/L (23-31); Chloride 106 mmol/L (98-107); Estimated GFR-MDRD 42; Glucose 130 mg/dL (83-110); Potassium 4.1 mmol/L (3.5-5.1); Sodium 135 mmol/L (136-145)
[2018-02-26] MEDS ORDERED: Amiodarone 200 MG TAB PO SCH (09:00)
[2018-02-26] MEDS ORDERED: Lisinopril 20 MG TAB PO SCH (09:00)
[2018-02-26] MEDS ORDERED: Famotidine 20 MG TAB PO SCH (09:00)
--- NOTE | 2018-02-26 09:51 | ULT ---
BILATERAL CAROTID DUPLEX ULTRASOUND WITH SPECTRAL ANALYSIS AND COLOR FLOW EVALUATION: DATE: 02/26/18. HISTORY: Dizziness. FINDINGS: Garcia scale, color flow, Doppler evaluation, and spectral analysis of the bilateral carotid arteries i s performed with 2D imaging. There is a prominent calcified atherosclerotic plaque seen within the b ilateral common carotid arteries, internal carotid arteries, as well as external carotid arteries. There is moderate (50-69%) stenosis involving the left internal carotid artery based on a peak systol ic velocity of 160.8 cm/s. The left ICA/CCA ratio of 1.15. There is less than 50% maximal stenosis in the right internal carotid artery based on a peak systolic velocity of 108.4 cm/s and an ICA/CCA ratio of 1.29. There are elevated peak systolic velocities and external carotid arteries bilaterally suggesting sign ificant stenosis. Antegrade flow is demonstrated in the vertebral arteries bilaterally. IMPRESSION: 1. Moderate (50-69%) stenosis involving the left internal carotid artery. 2. No hemodynamically significant stenosis involving the right internal carotid artery. POS: [facility]
--- NOTE | 2018-02-26 15:01 | DIS ---
DATE OF ADMISSION: 02/25/2018 DATE OF DISCHARGE: 02/26/2018 PRIMARY CARE PHYSICIAN: Nelly Hernandez M.D. DISCHARGE DIAGNOSES: 1. Repeated falls. 2. Alteration of awareness, resolved. 3. Dehydration. 4. Elevated creatinine. 5. Essential hypertension. 6. Hyperlipidemia. 7. Benign prostatic hypertrophy without obstruction. 8. Paroxysmal atrial fibrillation, on long-term anticoagulation. CONSULTATIONS: None. PROCEDURES: Carotid Doppler showed no hemodynamically significant stenoses. A 2D echocardiogram rep ort is currently pending. HOSPITAL COURSE: Mr. Heard is an 87-year-old gentleman, who presented to the emergency department o n 02/25/2018 for a change in mental status and multiple falls recently. He has not been eating or dr inking well and has lost about 20 pounds over the last several months. Since October, he has had abo ut 5 falls and fell down today at the day of admission when trying to get out of bed. He has not janak t anything nor hit his head. No chest pain or difficulty breathing. No loss of consciousness. He w as brought to the Emergency Department, he was okay, he was on Xarelto. Workup there showed increased creatinine with acute kidney injury on baseline chronic kidney disease, stage 2 with a creatinine of 0.9 and creatinine on presentation today was 1.72. We were subsequentl y called for admit. HOSPITAL COURSE: The patient was seen and examined by Dr. Blank, placed in observation, started on IV fluids and orthostatics were obtained that were initially normal. He had a 2-point change in his systolic pressure over 2-point change diastolic pressure from lying to standing. Overnight, he did fairly well. This morning prior to his medications, he did have a positive tilt. He dropped 30 systolic points and had a little bit dizziness. He was given his blood pressure medici jose roberto as normal at around 9:00 a.m., repeat orthostatic blood pressures showed no change with a systoli c stable in the 130s, no dizziness and no change in his pulse. A carotid Doppler was done and was unremarkable. A 2D echocardiogram done with official report jael william, but looked to be fairly normal. The patient and his family requesting rehab placement, so rehab screening was begun. The patient was seen and examined by PT and OT, seen by the director of rehabilitation and a ccepted. The patient was otherwise stable for discharge over there for rehabilitation and physical t herapy. PHYSICAL EXAMINATION: The patient was seen and examined on the day of discharge. Discharge plan and disposition was discussed with the patient face to face at the bedside. DISCHARGE MEDICATIONS: 1. Albuterol HFA 2 puffs q.4 hours p.r.n. 2. Amiodarone 200 mg p.o. daily. 3. Lipitor 20 mg p.o. at bedtime. 4. Vitamin D3 of 5000 units p.o. daily. 5. Proscar 5 mg p.o. at bedtime. 6. Toprol-XL 25 mg p.o. at bedtime. 7. Xarelto 15 mg p.o. at bedtime. 8. Hytrin 5 mg p.o. at bedtime. 9. Clear eyes Complete 1-2 drops each eye 4 times a day as needed for dry eyes. His lisinopril has been discontinued for now. DISPOSITION: Being discharged to [facility]. DISCHARGE CONDITION: Stable. DISCHARGE ACTIVITY: Per cardiopulmonary limits. DISCHARGE DIET: Heart healthy ordered and recommended. FOLLOWUP APPOINTMENTS: Primary care physician, Dr. Hernandez within a week.
[2018-02-26 16:21] VITALS: BP 166/67; TEMP 98.4
[2018-02-26] MEDS ORDERED: Atorvastatin Calcium 20 MG TAB PO SCH (21:00)
[2018-02-26] MEDS ORDERED: Terazosin HCl 5 MG CAP PO SCH (21:00)
[2018-02-26] MEDS ORDERED: Rivaroxaban 10 MG TAB PO SCH (21:00)
[2018-02-26] MEDS ORDERED: Finasteride 5 MG TAB PO SCH (21:00)
--- NOTE | 2018-03-04 14:36 | EKG ---
Test Reason : Blood Pressure : / mmHG Vent. Rate : 066 BPM Atrial Rate : 066 BPM P-R Int : 168 ms QRS Dur : 156 ms QT Int : 494 ms P-R-T Axes : 081 -07 023 degrees QTc Int : 517 ms Normal sinus rhythm Right bundle branch block Abnormal ECG Confirmed by PALAK ALVAREZ M.D. ([id number]), writer editor GIL DYSON ([id number]) on 03/04/2018 2:35:47 PM Referred By: Confirmed By:PALAK ALVAREZ M.D.
== END 2018-02-26 16:54 ==
LOC: ERS 19:51 → 2SW 20:00
PROVIDERS: ADMIT Internal Medicine; ATTEND Internal Medicine
DX: E86.0 Dehydration (principal); I48.91 Unspecified atrial fibrillation; I10 Essential (primary) hypertension; I12.9 Hypertensive chronic kidney disease with stage 1 through stage 4 chronic kidney disease, or unspecified chronic kidney disease; N18.2 Chronic kidney disease, stage 2 (mild); K21.9 Gastro-esophageal reflux disease without esophagitis; Z90.49 Acquired absence of other specified parts of digestive tract; Z98.890 Other specified postprocedural states; Z96.652 Presence of left artificial knee joint; Z79.51 Long term (current) use of inhaled steroids; Z79.899 Other long term (current) drug therapy; Z88.0 Allergy status to penicillin
CPT/HCPCS: 70450; 71045; 72125; 80048; 80053; 82553; 84484 ×3; 85025 ×2; 85610; 93005; 93306; 93880; 96360; 96361; 99285; G0378; 36415; 81003; 81015

== ENCOUNTER 2018-04-29 22:17 | Inpatient (IN) | payer MEDICARE ==
[2018-04-30 00:45] LABS: Bilirubin Negative (Negative); Blood, Urine Large (Negative); Clarity CLEAR (Clear); Glucose, Urine (Dipstick) Negative (Negative); Leukocyte Trace (Negative); Nitrite Negative (Negative); Protein, Urine (Dipstick) Negative (Neg-Trace); Specific Gravity, Urine 1.014 (1.002-1.036); pH, Urine 5.5 (5.0-9.0)
[2018-04-30 00:49] LABS: Bacteria/HPF None Seen HPF (None Seen); Hyaline Casts/LPF 0-3 HYALINE CAST LPF (0-3 Hyaline); RBC/HPF GREATER THAN 50-TNTC HPF (0-3); Squamous Epithelial None Seen HPF (0-3)
[2018-04-30 00:56] LABS: #Basophils 0.1 thou/uL (0.0-0.2); #Eosinphils 0.6 thou/uL (0.0-0.7); #Lymphocytes 2.1 thou/uL (1.20-3.40); #Neutrophils 5.3 thou/uL (1.40-6.50); %Basophils 0.8 % (0.0-1.0); %Eosinophils 6.7 % (0.0-10.0); %Monocytes 10.7 % (0.0-10.0); %Neutrophils 58.8 % (42.0-75.0); Hemoglobin 8.9 g/dL (14.0-18.0); Mean Corpuscular HGB CONC 32.6 g/dL (32.0-36.0); Mean Platelet Volume 6.3 fL (7.4-10.4); Platelet Count 287 thou/uL (130-400); RBC Distribution Width 15.9 % (11.5-14.5); Red Blood Cell (RBC) Count 3.18 mill/uL (4.70-6.10)
[2018-04-30 02:14] LABS: Anion Gap 10 mmol/L (10-20); BUN (Urea Nitrogen) 28 mg/dL (8.4-25.7); Calc. Creatinine Clearance 0 mL/min (70-130); Calcium 9.5 mg/dL (7.8-10.44); Carbon Dioxide 25 mmol/L (23-31); Chloride 107 mmol/L (98-107); Estimated GFR-MDRD 57; Glucose 102 mg/dL (83-110); Potassium 3.8 mmol/L (3.5-5.1); Sodium 138 mmol/L (136-145)
[2018-04-30 04:17] LABS: INR-International Normal Ratio 1.4; PTT 40.6 SEC (22.9-36.1); Prothrombin Time 17.4 SEC (12.0-14.7)
[2018-04-30] MEDS ORDERED: Pantoprazole 40 MG VIAL ONE (04:30)
[2018-04-30] MEDS ORDERED: HYDROcodone/Acetaminophen 5/325 mg Tablet PO PRN ×2 (05:26)
[2018-04-30] MEDS ORDERED: Dextrose 5 %-0.45 % NaCl 1,000 ML IV SCH (05:26)
[2018-04-30] MEDS ORDERED: Ondansetron ODT 4 MG TAB SL PRN (05:26)
[2018-04-30] MEDS ORDERED: Ondansetron HCl/PF 4 MG/2 ML Vial IVP PRN (05:26)
[2018-04-30] MEDS ORDERED: Acetaminophen 325 MG TAB PO PRN (05:26)
[2018-04-30] MEDS: Sodium Chloride 0.9% 1,000 ML IV SCH (06:00)
--- NOTE | 2018-04-30 09:02 | HP ---
CHIEF COMPLAINT: Falls. HISTORY OF PRESENT ILLNESS: Patient is an 87-year-old male who lives in [facility], who was brought i [facility] the ER for further evaluation for multiple falls today. The patient does not recall falling; how ever, per ER and per notes, it had mentioned that the patient has been falling significantly. There were also some concerns for blood in the stool and also hematuria. Patient is on Xarelto for chronic atrial fibrillation. The patient currently states that he has got pain all over. He does complain of some pain in his left hip area; however, denies any chest pain, shortness of breath, nausea, vomit ing, abdominal pain or diarrhea. The patient is awake, alert, oriented to self, he is disoriented to where he is currently. PAST MEDICAL HISTORY: 1. Atrial fibrillation on chronic anticoagulation. 2. History of falls. 3. History of hypertension. 4. History of dyslipidemia. 5. History of chronic kidney disease stage between 2 and 3. 6. History of TIAs. 7. BPH. 8. Question of GERD. PAST SURGICAL HISTORY: 1. He is status post cardiac ablation. 2. Status post left total knee arthroplasty. 3. Right rotator cuff repair. 4. Cholecystectomy. MEDICATIONS: Are as of the following: Tylenol over the counter 325 q.4 hours p.r.n. He takes Unity on 15 mg at bedtime, he takes terazosin 5 mg at bedtime, Xarelto 50 mg daily, amiodarone 200 mg daily , he takes iron 325 daily, metoprolol 25 mg daily, takes multivitamin with minerals daily, he takes r anitidine 150 mg once a day, finasteride 5 mg daily and Lipitor 20 mg at bedtime. ALLERGIES: He is allergic to PENICILLIN. SOCIAL HISTORY: The patient lives in [place]. However, currently he is at [facility]. Denies any alco hol, tobacco or drug use. He is a former smoker. REVIEW OF SYSTEMS: Currently, patient denies any, all negative except for the ones mentioned above i n the HPI. PHYSICAL EXAMINATION: VITAL SIGNS: Temperature is afebrile at 98.8, heart rate of 80, blood pressure of 130/60 and respira tions of 18. GENERAL: He is awake, alert, oriented to self only. CARDIOVASCULAR: S1 and S2 present. No murmurs, rubs or gallops. LUNGS: Clear to auscultation. No rhonchi or wheezes noted. ABDOMEN: Soft, nontender. Bowel sounds are present x2. EXTREMITIES: No edema. Pedal pulses are present x2. He does actually have a small chronic left piotr l healing ulcer. NEUROLOGIC: No focal deficits noted. HEENT: His mucous membranes appear to be very dry. No lymphadenopathy noted. SKIN: As I mentioned, he does have a small left heel decubitus which is healing. LABORATORY DATA: As of the following; his sodium of 138, potassium of 3.8, BUN of 20, creatinine of 1.21. Hematology; CBC; WBCs of 9.0, hemoglobin of 8.9 and hematocrit of 27.3. NECK: There are no b ands and platelets of 287. ASSESSMENT AND PLAN: The patient is a very pleasant 87-year-old male who presents to the hospital wi th falls and also was found to have dark stools and hematuria. 1. Falls, mechanical, it seems appear mechanical patient. Upon reviewing his history in previous ho spitalizations, he has had multiple falls. May be there needs to be a conversation with the patient' s family in regards to continuing the Xarelto given his history of multiple falls. For now, we will just hold the Xarelto. We will get physical therapy and occupational therapy to evaluate this patien t. He had a recent echocardiogram done back in 02/2018, which indicated an EF of 55% to 60%, left ve ntricular size was normal. There was no evidence of mitral regurgitation. No significant changes in his echocardiogram. 2. Hematuria. Patient per nursing staff noted to have clots when he was urinating; however, hemoglo bin and hematocrit appears to be at his baseline. We will continue to monitor. 3. May consider getting Urology consult. He does have a history of benign prostatic hypertrophy. W e will continue his Flomax and finasteride. 4. Possible hematochezia. I was told by the nurse that he did have significant blood. It was not d ark, it was maroonish colored blood when he had a bowel movement with some few clots; however, I am n ot sure if this is secondary to hemorrhoids versus a possible lower gastrointestinal bleed versus an upper GI bleed, but he does not have any pain upon palpation of his epigastric area; however, we will continue a PPI for now and we will consult GI for further evaluation. Again, there needs to be a ta lk with the patient's family in regards to anticoagulation. 5. Chronic atrial fibrillation, currently rate controlled. We will continue his home medications, b ut hold his Xarelto for now. 6. He did have possible right-sided abscess behind the liver. Now, I did review his ultrasound that was done in 10/2017 that also indicated a heterogeneous mass abutting in the right hepatic lobe. I was told by the ER physician that the CAT scan which was done with contrast indicated concerning for possible abscess. Patient does not have a fever. He does not have leukocytosis and in October, he w as treated with antibiotics, but there was no further evaluation done, may consider doing an IR radio logical aspiration if this is an abscess; however, further investigation needs to be done on this fin ding. Also, it was noted that the patient has a new inguinal hernia, which is not incarcerated.
[2018-04-30] MEDS: Pantoprazole 40 MG VIAL IVP SCH ×2 (10:42→21:46)
[2018-04-30] MEDS: Amiodarone 200 MG TAB PO SCH (10:42)
--- NOTE | 2018-04-30 11:17 | PDOC.EVN ---
Event Note - Event Note Event Note: Discussed with Dr. Porter. He evaluated the patient and that included a rectal exam which revealed normal brown stool with evidence of blood. Attempting to reach the patient's daughterKourtney at [phone].
--- NOTE | 2018-04-30 11:39 | PRG ---
DATE OF SERVICE: 04/30/2018 I had an opportunity to speak with the patient's daughter, Kourtney. I explained that the initial assessment by GI did not find evidence of a significant GI bleed and his hemoglobin is basically where it has been in the past. I made her aware that there are essentially four major issues,. 1. The possibility of the GI bleed, but that appears to be stable and at present there is no plan to do any further invasive evaluation or workup. We will continue to hold the Xarelto. 2. Hematuria. With some indication that he had been passing some clots, but he has been passing them reasonably well. We will continue to monitor his urine output and as long as there is no evidence of obstruction, we will not plan bladder irrigation. We will also continue to hold the Xarelto in light of that. 3. History of the atrial fibrillation and the concern for the ongoing use of the Xarelto. Patient's lockstitch shoulder joiner is Dr. Oconnor. After discussing this with Kourtney, we will consult him for tomorrow so that he can weigh in on the decision whether the patient should continue on the anticoagulation or not. 4. There is the issue of the mass-like lesion in the retrohepatic space which has been there for at least 7 months and was present back in October. She believes it has been present for 2 years. She indicates that he does have some pain in that area intermittently, but not consistently. There is some concern this could potentially be an abscess; however, there is no fever or leukocytosis to support any active issues. Given his cardiac issues, the blood thinners, the advanced age, it would be concerning to be aggressive in pursuing this unless we feel like there is a strong compelling reason to do so. Again, after discussions with her, we will consult General Surgery to see if they have any strong feelings on pursuing this, but she is certainly in favor of leaving it alone if there is not. She will be here tomorrow afternoon after work if there are any further issues to be discussed. ASHTYN
[2018-04-30 12:14] LABS: Hemoglobin 9.1 g/dL (14.0-18.0)
--- NOTE | 2018-04-30 12:29 | CT ---
PRELIMINARY REPORT/[facility]/EMERGENTY AFTER-HOURS PROCEDURE CT Head Without Intravenous Contrast CLINICAL HISTORY: 87 years old, male; Injury or trauma; Fall; Initial encounter; Abrasion; Not specified; Patient HX: E r 9; Ems reports pt has fallen 4 times in past couple days at assisted. TECHNIQUE: Axial computed tomography images of the head/brain without intravenous contrast. COMPARISON: No relevant prior studies available. FINDINGS: Mild cerebral volume loss. Chronic small vessel disease. No intracranial hemorrhage or hydrocephalus. No mass, mass effect or midline shift. No effacement of the ventricles, cortical sulci and basal cisterns. Garcia-white matter differentiation is preserved. Atherosclerosis of the intracranial vasculature. No dense MCA sign. Status post bilateral cataract surgeries. Paranasal sinuses are clear. Mastoid air cells are clear. No acute fracture. Soft tissues unremarkable. IMPRESSION: No acute intracranial abnormality. Thank you for allowing us to participate in the care of your patient. Dictated and Authenticated by: Titus Beltran MD 04/30/2018 3:28 AM Central Time ([place] & [place]) FINAL REPORT EMERGENCY AFTER HOURS CT BRAIN: Date: 04/30/18 IMPRESSION: I agree with the preliminary interpretation given by [facility]. No evidence for intracranial hemorrhage or mass effect. Comparison made with study dated 02/25/18. POS: [facility]
--- NOTE | 2018-04-30 12:31 | CT ---
PRELIMINARY REPORT/[facility]/EMERGENTY AFTER-HOURS PROCEDURE Addendum created by Titus Beltran MD on 04/30/2018 3:49 AM Central Time ([place]) Additional fi nding: Mild diffuse urinary bladder wall thickening which is nonspecific but may be due to cystitis i n the appropriate clinical setting. Prostate is enlarged protruding into the base of the urinary blad sade. THIS REPORT CONTAINS FINDINGS THAT MAY BE CRITICAL TO PATIENT CARE. The findings were verbally commun icated via telephone conference with Zackery Lopez MD at 3:47 AM CDT on 04/30/2018. The findings w ere acknowledged and understood. Initial Report created on 04/30/2018 3:42 AM Central Time ([place]) CT Abdomen and Pelvis With Intravenous Contrast CLINICAL HISTORY: 87 years old, male; Pain; Abdominal pain; Localized; Lower; Patient HX: Er 9; M87 reports to ed C/O p ossible rectal bleeding. Pt reports he personally has not seen it in stool, but according to outside source there was slight levels. Pt reports he needs to use the restroom is his only complaint. Baseba ll size mass located on the left side of super pubic area; Pt states that it has been there for years ; Pt reports no pain or change in size TECHNIQUE: Axial computed tomography images of the abdomen and pelvis with intravenous contrast. Coronal reformatted images were created and reviewed. COMPARISON: No relevant prior studies available. FINDINGS: Lung bases: Unremarkable. No mass. No consolidation. Pleural space: Small right pleural effusion. ABDOMEN: Liver: Peripheral enhancing collection adjacent to the right hepatic lobe posteriorly measuring appro ximately 3.2 x 1.8 cm measured in image 16 series 2. Additional heterogenous 5.0 x 4.4 cm enhancement with central hypodensities measured in image 21 series 2 and additional same characteristic lesion laterally measuring approximately 5.2 x 1.3 cm measured in image 25 series 2. Gallbladder and bile ducts: Status post cholecystectomy. Pancreas: Unremarkable. Spleen: Unremarkable. Adrenals: Unremarkable. Kidneys and ureters: Unremarkable. Stomach and bowel: Diverticulosis of the colon without inflammatory changes. Stool throughout the col on. PELVIS: Appendix: No findings to suggest acute appendicitis. Bladder: Unremarkable. Reproductive: Prostate is enlarged with calcifications. ABDOMEN and PELVIS: Intraperitoneal space: See above findings adjacent to the liver. No free air. Bones/joints: Extensive multilevel degenerative changes of the spine with broad posterior disc osteop hyte formation at L5/S1 with moderate spinal canal stenosis and severe bilateral neuroforaminal narro wing. Diffuse osteopenia. Soft tissues: Large bowel containing left inguinal hernia without bowel obstruction. Vasculature: Atherosclerotic calcification of the aorta and its major branches. No abdominal aortic a neurysm. Lymph nodes: Scattered non specific subcentimeter mesenteric lymph nodes. Other findings. IMPRESSION: 1. Multifocal rim enhancing fluid collection behind the right hepatic lobe posteriorly as described a ken suspicious for abscess formation. 2. Large bowel containing left inguinal hernia without bowel obstruction at this time. 3. Diverticulosis of the colon without inflammatory changes. 4. Extensive multilevel degenerative changes with spinal stenosis and neuroforaminal narrowing at L5/ S1. Thank you for allowing us to participate in the care of your patient. Dictated and Authenticated by: Titus Beltran MD 04/30/2018 3:42 AM Central Time ([place] & [place]) FINAL REPORT EMERGENCY AFTER HOURS CT ABDOMEN AND PELVIS: Date: 04/30/18 IMPRESSION: I agree with the preliminary interpretation given by [place]. 1. There is a cystic and solid mass present at the posterior aspect of the right hemithorax/hemiabdo men with extension into the cranial aspects of the peritoneal cavity and the pararenal space. This is adjacent to a right pleural effusion. Differential considerations would include a pleural based meta static process versus an infectious process. 2. Large bowel-containing left inguinal hernia without evidence for obstruction. POS: [facility]
[2018-04-30] MEDS ORDERED: ISOVUE-370 76%-LOCM 1 ML ONE (12:40)
--- NOTE | 2018-04-30 19:32 | CON ---
DATE OF CONSULTATION: 04/30/2018 CHIEF COMPLAINT: Retroperitoneal mass. HISTORY: This is an 87-year-old male who sustained multiple falls and was found to have some blood i n his stool and hematuria. He is on Xarelto, so he was admitted for that. They did a CT scan of the abdomen, which revealed this irregular mass in the retroperitoneum behind the liver. PAST MEDICAL HISTORY: Significant for atrial fibrillation, on anticoagulation; hypertension; hyperli pidemia; chronic renal insufficiency; history of TIAs; he has benign prostatic hypertrophy; gastroeso phageal reflux. PAST SURGICAL HISTORY: Cardiac ablation, total knee arthroscopy, rotator cuff, cholecystectomy. ALLERGIES: PENICILLIN. MEDICATIONS: Remeron, terazosin, Xarelto, amiodarone, iron, metoprolol, ranitidine, finasteride, Lip itor. SOCIAL HISTORY: He lives in a alf at [facility]. No tobacco or alcohol. PHYSICAL EXAMINATION: VITAL SIGNS: Temperature 97.5, pulse 62, blood pressure 166/71. GENERAL: He is awake, does not appear to be in any distress, but very confused. HEENT: Otherwise unremarkable. LUNGS: Clear. HEART: Regular rate and rhythm. ABDOMEN: Soft, nondistended. I do not feel any tenderness. He has a large left inguinal hernia leo t is partially reducible. EXTREMITIES: Unremarkable. LABORATORY AND X-RAY FINDINGS: His white count is 9, H&H 8.9 and 27, platelet count 287. His PT is elevated at 17.4, PTT of 40.6. Electrolytes showed an elevated creatinine of 1.21. Urinalysis, too numerous to count red cells. CT scan showed thickening of the bladder with a very large prostate. H e has a 3.2 x 4.8 cm mass there is very irregular and multilocular in the retroperitoneum behind the right lobe of the liver. They also saw the left inguinal hernia. I talked to Dr. Madsen, the radiolo gist, who is somewhat worried about this being neoplastic. ASSESSMENT: Retroperitoneal mass, not amenable to biopsy with the laparoscope. It is in a very diff icult location. PLAN: Recommend either ultrasound or CT-guided biopsy per Radiology.
[2018-04-30] MEDS: Atorvastatin Calcium 20 MG TAB PO SCH ×2 (21:47→21:53)
[2018-04-30] MEDS: Finasteride 5 MG TAB PO SCH ×2 (21:47→21:53)
--- NOTE | 2018-05-01 01:00 | CON ---
DATE OF CONSULTATION: 04/30/2018 REFERRING PHYSICIAN: Epi Suarez M.D. REASON FOR CONSULTATION: History of gastrointestinal bleeding, possible bright red blood in the rectum versus dark stool. HISTORY OF PRESENT ILLNESS: Noah Heard is an 87 years old male, hospitalized yesterday for a repeated fall from the [facility]. Head CAT scan is basically negative. The patient is a very fragile-looking male, who is somewhat restless and moving around in the bed.. He also is not very much oriented. He is able to tell me his doctor's name is Dr. Hernandez. Otherwise, he is not a good historian. He does not recall having any rectal bleeding or any melena. There is also mention of hematuria as per the admitting physician; however, the patient is having GI bleeding. The patient has a history of atrial fibrillation in 2014. Initially, he underwent a heart ablation by Dr. Elizondo in 09/2015; however, that ablation occurred again. He underwent cardioversion, but he is back in atrial fibrillation again. He is on Xarelto. The patient is in the [facility]. Apparently, he has a history that he has been having recurrent falls off and on. He was brought to the ER and hospitalized. His CT scan of head is negative for any internal bleeding. He denies abdominal pain, nausea, vomiting. He has no history of nausea or vomiting. No other relevant history. ALLERGIES: PENICILLIN. MEDICAL ILLNESSES: 1. Chronic atrial fibrillation with previous heart ablation in 2014, following the cardioversion, but he is back in his atrial fibrillation. 2. History of recurrent falls. 3. History of hypertension. 4. Dyslipidemia. 5. 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 6. Chronic kidney disease. 7. TIA. 8. BPH. 9. Arthritis. SURGERIES: 1. Status post laparoscopic cholecystectomy by Dr. Epi Dennis in 2016. 2. Right rotator cuff repair. 3. Status post left knee replacement. 4. Heart ablation in 2014. MEDICATIONS: List includes Tylenol, Xarelto, Remeron, amiodarone. He is also on iron supplement, metoprolol, ranitidine, finasteride, , Lipitor. SOCIAL HISTORY: The patient denies any smoking or alcohol abuse. REVIEW OF SYSTEMS: System review unobtainable, as he is kind of confused and he sometimes answers questions appropriately and sometimes what he says is totally irrelevant to the question. PHYSICAL EXAMINATION: GENERAL: He is a fragile-looking male, who appears awake, alert, and communicative; however, he does appear confused and does not really answer questions appropriately. VITAL SIGNS: He is afebrile. His pulse is 64, blood pressure is 174/80. HEENT: Conjunctivae clear. NECK: Supple. No adenitis or thyromegaly noted. CARDIOVASCULAR SYSTEM: First and second heart sounds normal. LUNGS: Clear to auscultation. ABDOMEN: Soft. Abdomen is nontender. There is no organomegaly or masses. RECTAL: I did a rectal exam at bedside. The rectum exam showed small hemorrhoids, but the stool was basically brownish and not blood stained and is not black. I have do not seen any blood on the exam finger. EXTREMITIES: No edema. LABORATORY DATA: Shows hemoglobin of 8.9, hematocrit 27.3, WBC 9000, platelet count 287,000, polymorphs 58, lymphocytes 23. Repeat H and H today at 12:00 is 9.1 and 29.1. Chem-7: BUN is 28. Electrolytes are normal. Glucose is 102, calcium 9.5. The patient has been in the hospital several times. He is here as recently as 03/05/2018. On 03/05/2018, his blood count was still low at 8.7 , hematocrit 27.6 Anemia is actually chronic. He had rectal exam done, which showed no blood or any black stool. The stool is actually light brown. CLINICAL IMPRESSION: An 87-year-old male with a history of recurrent falls with questionable history of hematuria and hematochezia. I do not see any sign of bleeding on rectal exam. The stool is actually normal in color and there is no blood on the exam finger. The patient has had anemia even before. Blood counts are baseline on 03/05/2018 was 8.7, hematocrit 27.6. Today is around 8.9 , showed nothing much has really changed. OVERALL IMPRESSION: I do not see any sign of bleeding and there is a questionable history of hematochezia. I do not believe he has bleeding. RECOMMENDATIONS: 1. Diet as tolerated. 2. Follow hemoglobin and hematocrit. 3. No need for endoscopic studies, as he has no sign of bleeding and he is 87 and I am really not sure he will be able to be prepped. As he has no signs of bleeding, I will sign off. Please call me back if any new problem. MTDD
[2018-05-01 05:49] LABS: #Basophils 0.1 thou/uL (0.0-0.2); #Eosinphils 0.6 thou/uL (0.0-0.7); #Lymphocytes 1.6 thou/uL (1.20-3.40); #Monocytes 0.7 thou/uL (0.11-0.59); #Neutrophils 5.5 thou/uL (1.40-6.50); %Eosinophils 7.5 % (0.0-10.0); %Lymphocytes 19.1 % (21.0-51.0); %Monocytes 8.2 % (0.0-10.0); %Neutrophils 64.2 % (42.0-75.0); Hemoglobin 9.2 g/dL (14.0-18.0); Mean Corpuscular HGB CONC 32.7 g/dL (32.0-36.0); Mean Corpuscular Hemoglobin 28.1 pg (27.0-31.0); Mean Corpuscular Volume 86.1 fL (78.0-98.0); Mean Platelet Volume 6.5 fL (7.4-10.4); Platelet Count 290 thou/uL (130-400); RBC Distribution Width 15.8 % (11.5-14.5); Red Blood Cell (RBC) Count 3.27 mill/uL (4.70-6.10); White Blood Cell (WBC) Count 8.6 thou/uL (4.8-10.8)
[2018-05-01 05:58] LABS: Anion Gap 9 mmol/L (10-20); BUN (Urea Nitrogen) 17 mg/dL (8.4-25.7); Calc. Creatinine Clearance 53 mL/min (70-130); Calcium 9.3 mg/dL (7.8-10.44); Carbon Dioxide 24 mmol/L (23-31); Chloride 109 mmol/L (98-107); Estimated GFR-MDRD 70; Glucose 87 mg/dL (83-110); Potassium 4.3 mmol/L (3.5-5.1); Sodium 138 mmol/L (136-145)
[2018-05-01] MEDS: Sodium Chloride 0.9% 1,000 ML IV SCH ×2 (06:42→23:42)
[2018-05-01] MEDS ORDERED: Prevnar 13-Val Conj/PF 0.5 ML SYRINGE IM ONE (09:00)
[2018-05-01] MEDS: Amiodarone 200 MG TAB PO SCH (09:46)
[2018-05-01] MEDS: Pantoprazole 40 MG VIAL IVP SCH ×2 (09:46→21:15)
[2018-05-01] MEDS ORDERED: Sodium Bicarbonate 2.5 MEQ/5 ML VIAL ONE (09:59)
[2018-05-01] MEDS ORDERED: Fentanyl 100 MCG/2 ML VIAL ONE (10:00)
[2018-05-01] MEDS ORDERED: Midazolam HCl 2 mg/2 ml Vial ONE (10:00)
--- NOTE | 2018-05-01 13:17 | PDOC.PN ---
- Subjective Encounter Start Date: 05/01/18 Encounter Start Time: 14:00 Subjective: had CT guided biopsy of retroperitoneal mass this am - Objective Resuscitation Status: Resuscitation Status FULL:Full Resuscitation MAR Reviewed: Yes Vital Signs & Weight: Vital Signs (12 hours) Temp Pulse Resp BP BP Pulse Ox 05/01/18 08:00 98 F 66 16 165/72 H 05/01/18 04:30 98 F 63 20 171/74 H 94 L Weight Admit Weight 160 lb 14.4 oz Weight 158 lb 11.2 oz I&O: 04/30/18 05/01/18 05/02/18 06:59 06:59 06:59 Intake Total 840 Balance 840 Result Diagrams: 05/01/18 05:04 05/01/18 05:04 Phys Exam - Physical Examination HEENT: PERRLA, moist MMs Neck: no JVD, supple Respiratory: no wheezing, no rales Cardiovascular: RRR, no significant murmur Gastrointestinal: soft, no distention, positive bowel sounds Musculoskeletal: pulses present Neurological: non-focal, moves all 4 limbs Dx/Plan (1) Retroperitoneal mass Code(s): R19.00 - INTRA-ABD AND PELVIC SWELLING, MASS AND LUMP, UNSP SITE Status: Acute Comment: s/p biopsy 05/01/2018 (2) Chronic anemia Code(s): D64.9 - ANEMIA, UNSPECIFIED Status: Chronic (3) BPH (benign prostatic hyperplasia) Code(s): N40.0 - BENIGN PROSTATIC HYPERPLASIA WITHOUT LOWER URINRY TRACT SYMP Status: Chronic Qualifiers: Lower urinary tract symptom presence: unspecified whether lower urinary tract symptoms present Qualified Code(s): N40.0 - Benign prostatic hyperplasia without lower urinary tract symptoms (4) Atrial fibrillation Code(s): I48.91 - UNSPECIFIED ATRIAL FIBRILLATION Status: Chronic Qualifiers: Atrial fibrillation type: chronic Qualified Code(s): I48.2 - Chronic atrial fibrillation Comment: rate controlled (5) Dyslipidemia Code(s): E78.5 - HYPERLIPIDEMIA, UNSPECIFIED Status: Chronic (6) H/O: CVA (cerebrovascular accident) Code(s): Z86.73 - PRSNL HX OF TIA (TIA), AND CEREB INFRC W/O RESID DEFICITS Status: Chronic (7) Hypertension Code(s): I10 - ESSENTIAL (PRIMARY) HYPERTENSION Status: Chronic Qualifiers: Hypertension type: essential hypertension Qualified Code(s): I10 - Essential (primary) hypertension - Plan is on amiodarone bid 200mg, lipitor, protonix -: gentle iv hydration -: PT to mobilize as tolerated * . Review of Systems - Medications/Allergies Allergies/Adverse Reactions: Allergies Allergy/AdvReac Type Severity Reaction Status Date / Time Penicillins Allergy Intermediate Hives Verified 02/25/18 23:18 Medications: Current Medications Amiodarone HCl (Cordarone) 200 mg PO DAILY [facility] Last Admin: 05/01/18 09:46 Dose: 200 mg Atorvastatin Calcium (Lipitor) 20 mg PO HS [facility] Last Admin: 04/30/18 21:53 Dose: Not Given Finasteride (Proscar) 5 mg PO HS [facility] Last Admin: 04/30/18 21:53 Dose: Not Given Sodium Chloride (Normal Saline 0.9%) 1,000 mls @ 50 mls/hr IV .Q20H [facility] Last Admin: 05/01/18 06:42 Dose: 1,000 mls Pantoprazole Sodium (Protonix) 40 mg IVP Q12HR [facility] Last Admin: 05/01/18 09:46 Dose: 40 mg Sodium Chloride (Flush - Normal Saline) 10 ml IVF Q12HR [facility] Last Admin: 05/01/18 09:46 Dose: 10 ml Sodium Chloride (Flush - Normal Saline) 10 ml IVF PRN PRN PRN Reason: Saline Flush
--- NOTE | 2018-05-01 13:32 | CT ---
CT GUIDED BIOPSY RIGHT ABDOMINAL MASS: Date: 05/01/18 HISTORY: Abdominal mass. FINDINGS: After explaining the procedure and answering all questions, limited CT imaging of the upper abdomen w as performed. A right posterior approach was planned. Sterile technique, buffered local anesthesia, C T guidance, and a right posterior approach were used to carefully advance a 17 gauge trocar needle in to the mass adjacent to the right posterior diaphragm. Position was confirmed with CT. A total of fou r core biopsy specimens, 18 gauge, were obtained and eventually submitted to pathology. One was in Fo rmalin solution for gross and micropathology. Samples were also sent for microbiologic analysis. The needle was removed. Postprocedure imaging shows no evidence of complication. The patient tolerated th e procedure well and was returned in unchanged condition. IMPRESSION: Technically successful CT guided biopsy right abdominal mass. Pathology pending. POS: [facility]
--- NOTE | 2018-05-01 17:00 | CON ---
DATE OF CONSULTATION: 05/01/2018 REASON FOR CONSULTATION: Recent fall and anticoagulation therapy. HISTORY OF PRESENT ILLNESS: Mr. Heard is a very pleasant 87-year-old gentleman who I have seen and evaluated in the past. He recently presented with recent fall. This is obtained from the chart. He does not remember falling. He is currently on novel oral anticoagulation therapy for atrial fibrill ation. No other symptoms. PAST MEDICAL HISTORY: Hyperlipidemia, hypertension, atrial fibrillation, chronic kidney disease, TIA , acid reflux. PAST SURGICAL HISTORY: Knee surgery, rotator cuff repair, cholecystectomy. CURRENT MEDICATIONS: Xarelto, terazosin, Remeron, iron, metoprolol, multivitamin, ranitidine, finast eride, Lipitor and amiodarone. ALLERGIES: PENICILLIN. SOCIAL HISTORY: No current tobacco or alcohol use. REVIEW OF SYSTEMS: Ten-point review of systems as above, otherwise negative. PHYSICAL EXAMINATION: VITAL SIGNS: Blood pressure 165/72, pulse 66, respirations 20. GENERAL: Patient is a pleasant male who is in no acute distress. The patient appears his stated age . NEUROLOGIC: The patient is alert and oriented times 3 with no focal neurologic deficits. HEENT: Sclerae without icterus. Mouth has moist mucous membranes with normal pallor. NECK: No JVD. Carotid upstroke brisk. No bruits bilaterally. LUNGS: Clear to auscultation with unlabored respirations. BACK: No scoliosis or kyphosis. CARDIAC: Regular rate and rhythm with normal S1 and S2. No S3 or S4 noted. No significant rubs, murmurs, thrills, or gallops noted throughout the precordium. PMI is not displaced. There is no parasternal heave. ABDOMEN: Soft, nontender, nondistended. No peritoneal signs present. No hepatosplenomegaly. No abnormal striae. EXTREMITIES: 2+ femoral and 2+ dorsalis pedis pulses. No cyanosis, clubbing, or edema. SKIN: No gross abnormalities. PERTINENT LABS: Hemoglobin 9.2, creatinine 1.0. IMPRESSION: 1. Atrial fibrillation. 2. Anticoagulation therapy. 3. Recent falls. RECOMMENDATIONS: From a CV standpoint if the patient has continued to have falls, the patient is at an increased risk of having complications of bleeding. I will discuss with his family. I also discu ssed with the patient. We would not recommend proceeding with anticoagulation therapy if falls are c ontinuing.
[2018-05-01] MEDS: Finasteride 5 MG TAB PO SCH (21:15)
[2018-05-01] MEDS: Atorvastatin Calcium 20 MG TAB PO SCH (21:15)
[2018-05-02] MEDS: Amiodarone 200 MG TAB PO SCH (09:06)
--- NOTE | 2018-05-02 12:42 | PDOC.PN ---
- Subjective Encounter Start Date: 05/02/18 Encounter Start Time: 10:20 Subjective: no sob or palpitations -: feels better, slept well last night - Objective Resuscitation Status: Resuscitation Status FULL:Full Resuscitation MAR Reviewed: Yes Vital Signs & Weight: Vital Signs (12 hours) Temp Pulse Pulse Pulse Resp BP BP 05/02/18 08:00 99.4 F 60 18 05/02/18 07:43 60 72 179/75 H 181/74 H 05/02/18 07:35 99.4 F 60 18 05/02/18 04:00 98.7 F 55 L 16 BP Pulse Ox Pulse Ox Pulse Ox 05/02/18 08:00 05/02/18 07:43 95 94 L 05/02/18 07:35 179/75 H 95 05/02/18 04:00 159/70 H 94 L Weight Admit Weight 160 lb 14.4 oz Weight 158 lb 6.4 oz I&O: 05/01/18 05/02/18 05/03/18 06:59 06:59 06:59 Intake Total 840 1095 Balance 840 1095 Result Diagrams: 05/01/18 05:04 05/01/18 05:04 Phys Exam - Physical Examination HEENT: PERRLA, moist MMs Neck: no JVD, supple Respiratory: no wheezing, no rales Cardiovascular: RRR, no significant murmur Gastrointestinal: soft, non-tender, positive bowel sounds Musculoskeletal: no edema, pulses present Neurological: non-focal, moves all 4 limbs Psychiatric: normal affect Dx/Plan (1) Retroperitoneal mass Code(s): R19.00 - INTRA-ABD AND PELVIC SWELLING, MASS AND LUMP, UNSP SITE Status: Acute Comment: s/p biopsy 05/01/2018 (2) Chronic anemia Code(s): D64.9 - ANEMIA, UNSPECIFIED Status: Chronic (3) BPH (benign prostatic hyperplasia) Code(s): N40.0 - BENIGN PROSTATIC HYPERPLASIA WITHOUT LOWER URINRY TRACT SYMP Status: Chronic Qualifiers: Lower urinary tract symptom presence: unspecified whether lower urinary tract symptoms present Qualified Code(s): N40.0 - Benign prostatic hyperplasia without lower urinary tract symptoms (4) Atrial fibrillation Code(s): I48.91 - UNSPECIFIED ATRIAL FIBRILLATION Status: Chronic Qualifiers: Atrial fibrillation type: chronic Comment: rate controlled (5) Dyslipidemia Code(s): E78.5 - HYPERLIPIDEMIA, UNSPECIFIED Status: Chronic (6) H/O: CVA (cerebrovascular accident) Code(s): Z86.73 - PRSNL HX OF TIA (TIA), AND CEREB INFRC W/O RESID DEFICITS Status: Chronic (7) Hypertension Code(s): I10 - ESSENTIAL (PRIMARY) HYPERTENSION Status: Chronic Qualifiers: Hypertension type: essential hypertension - Plan is on amiodarone, lipitor and proscar -: gentle iv hydration -: dc plan in 24hrs -: biopsy results are pending -: to ambulate as tolerated * . Review of Systems - Medications/Allergies Allergies/Adverse Reactions: Allergies Allergy/AdvReac Type Severity Reaction Status Date / Time Penicillins Allergy Intermediate Hives Verified 02/25/18 23:18 Medications: Current Medications Amiodarone HCl (Cordarone) 200 mg PO DAILY [facility] Last Admin: 05/02/18 09:06 Dose: 200 mg Atorvastatin Calcium (Lipitor) 20 mg PO HS [facility] Last Admin: 05/01/18 21:15 Dose: 20 mg Finasteride (Proscar) 5 mg PO HS [facility] Last Admin: 05/01/18 21:15 Dose: 5 mg Sodium Chloride (Normal Saline 0.9%) 1,000 mls @ 50 mls/hr IV .Q20H [facility] Last Admin: 05/01/18 23:42 Dose: Not Given Pantoprazole Sodium (Protonix) 40 mg PO DAILY [facility] Last Admin: 05/02/18 09:06 Dose: 40 mg Sodium Chloride (Flush - Normal Saline) 10 ml IVF Q12HR [facility] Last Admin: 05/02/18 09:09 Dose: Not Given Sodium Chloride (Flush - Normal Saline) 10 ml IVF PRN PRN PRN Reason: Saline Flush
--- NOTE | 2018-05-02 18:34 | CON ---
DATE OF SERVICE: 05/02/2018 SUBJECTIVE: Mr. Heard is doing well, no current complaints. Heart rate continues to be stable. VITAL SIGNS: Blood pressure is 167/73, pulse 89, temperature 98.9. LUNGS: Clear to auscultation. CARDIAC: Regular rate and rhythm. ABDOMEN: Soft, nontender, nondistended. EXTREMITIES: No edema. PERTINENT LABORATORY DATA: Hemoglobin 9.2, creatinine 1.0. SPECIMEN: Currently pending. IMPRESSION: Atrial fibrillation, now sinus. RECOMMENDATIONS: I discussed the case with Dr. Oconnell. It appears Mr. Heard has had falls, but he seems to have slight able to catch himself. There has been no significant trauma except for on e episode 1 year ago. Given the above, we would recommend continuing anticoagulation therapy with cl ose observation of a hemoglobin. If he does have recurrent traumatic falls, we would then consider s topping anticoagulation treatment. Kourtney agreed. I will likely restart tomorrow after discussing t he case with primary team.
[2018-05-02] MEDS: Atorvastatin Calcium 20 MG TAB PO SCH (21:20)
[2018-05-02] MEDS: Finasteride 5 MG TAB PO SCH (21:21)
--- NOTE | 2018-05-03 06:52 | PDOC.CTH ---
Cardiology Progress Note - Subjective Doing well. No complaints. - Objective Vital Signs Temp Pulse Resp BP Pulse Ox 05/03/18 03:36 98.6 F 62 20 176/76 H 95 05/02/18 20:00 99.4 F 57 L 18 165/71 H 96 Admit Weight 160 lb 14.4 oz Weight 158 lb 6.4 oz 05/01/18 05/02/18 05/03/18 06:59 06:59 06:59 Intake Total 840 1095 Balance 840 1095 - Physical Examination General/Neuro: alert & oriented x3, NAD Neck: no JVD present Lungs: CTA, unlabored respirations Heart: PMI normal, RRR Abdomen: NT/ND, soft Extremities: + femoral B - Labs Result Diagrams: 05/01/18 05:04 05/01/18 05:04 - Assessment/Plan 1. afib 2. CKD 3. Recent falls Resume ACT (lovenox for now) then strat eliquis prior to d/c. Pt with recent abdominal mass biopsy. PT await biopsy results fu with me in 1-2 weeks
[2018-05-03] MEDS: Amiodarone 200 MG TAB PO SCH (08:04)
[2018-05-03] MEDS: Sodium Chloride 0.9% 1,000 ML IV SCH (08:04)
[2018-05-03 10:29] VITALS: BMI 24.8
--- NOTE | 2018-05-03 11:27 | PDOC.PN ---
- Subjective Encounter Start Date: 05/03/18 Encounter Start Time: 08:45 Subjective: no pain or sob or palp - Objective Resuscitation Status: Resuscitation Status FULL:Full Resuscitation MAR Reviewed: Yes Vital Signs & Weight: Vital Signs (12 hours) Temp Pulse Resp BP BP Pulse Ox 05/03/18 10:52 97.6 F 56 L 16 179/56 H 97 05/03/18 10:15 98.7 F 64 18 175/68 H 98 05/03/18 07:57 98.3 F 65 17 171/77 H 95 05/03/18 03:36 98.6 F 62 20 176/76 H 95 Weight Admit Weight 160 lb 14.4 oz Weight 154 lb 1.6 oz I&O: 05/02/18 05/03/18 05/04/18 06:59 06:59 06:59 Intake Total 1095 1145 365 Balance 1095 1145 365 Result Diagrams: 05/01/18 05:04 05/01/18 05:04 Phys Exam - Physical Examination HEENT: PERRLA, moist MMs Neck: no JVD, supple Respiratory: no wheezing, no rales Cardiovascular: no significant murmur, irregular Gastrointestinal: soft, non-tender, positive bowel sounds Musculoskeletal: no edema, pulses present Neurological: non-focal, moves all 4 limbs Psychiatric: normal affect, A&O x 3 Dx/Plan (1) Retroperitoneal mass Code(s): R19.00 - INTRA-ABD AND PELVIC SWELLING, MASS AND LUMP, UNSP SITE Status: Acute Comment: s/p biopsy 05/01/2018 (2) Chronic anemia Code(s): D64.9 - ANEMIA, UNSPECIFIED Status: Chronic (3) BPH (benign prostatic hyperplasia) Code(s): N40.0 - BENIGN PROSTATIC HYPERPLASIA WITHOUT LOWER URINRY TRACT SYMP Status: Chronic Qualifiers: Lower urinary tract symptom presence: unspecified whether lower urinary tract symptoms present Qualified Code(s): N40.0 - Benign prostatic hyperplasia without lower urinary tract symptoms (4) Atrial fibrillation Code(s): I48.91 - UNSPECIFIED ATRIAL FIBRILLATION Status: Chronic Qualifiers: Atrial fibrillation type: chronic Qualified Code(s): I48.2 - Chronic atrial fibrillation Comment: rate controlled (5) Dyslipidemia Code(s): E78.5 - HYPERLIPIDEMIA, UNSPECIFIED Status: Chronic (6) H/O: CVA (cerebrovascular accident) Code(s): Z86.73 - PRSNL HX OF TIA (TIA), AND CEREB INFRC W/O RESID DEFICITS Status: Chronic (7) Hypertension Code(s): I10 - ESSENTIAL (PRIMARY) HYPERTENSION Status: Chronic Qualifiers: Hypertension type: essential hypertension Qualified Code(s): I10 - Essential (primary) hypertension - Plan await biopsy results and further w/u -: hemostable -: likely dc home once a plan is in place based on Bx results -: will f/u, amiodarone, lipitor and proscar -: is on full dose lovenox from today per cardio advice * . Review of Systems - Medications/Allergies Allergies/Adverse Reactions: Allergies Allergy/AdvReac Type Severity Reaction Status Date / Time Penicillins Allergy Intermediate Hives Verified 02/25/18 23:18 Medications: Current Medications Amiodarone HCl (Cordarone) 200 mg PO DAILY [facility] Last Admin: 05/03/18 08:04 Dose: 200 mg Atorvastatin Calcium (Lipitor) 20 mg PO HS [facility] Last Admin: 05/02/18 21:20 Dose: 20 mg Enoxaparin Sodium (Lovenox) 70 mg SC 0900,2100 [facility] Finasteride (Proscar) 5 mg PO HS [facility] Last Admin: 05/02/18 21:21 Dose: 5 mg Sodium Chloride (Normal Saline 0.9%) 1,000 mls @ 50 mls/hr IV .Q20H [facility] Last Admin: 05/03/18 08:04 Dose: 1,000 mls Pantoprazole Sodium (Protonix) 40 mg PO DAILY [facility] Last Admin: 05/03/18 08:04 Dose: 40 mg Sodium Chloride (Flush - Normal Saline) 10 ml IVF Q12HR [facility] Last Admin: 05/03/18 08:05 Dose: Not Given Sodium Chloride (Flush - Normal Saline) 10 ml IVF PRN PRN PRN Reason: Saline Flush
[2018-05-03] MEDS: Enoxaparin Sodium 80 MG/0.8 ML SYRINGE SC SCH (21:13)
[2018-05-03] MEDS: Finasteride 5 MG TAB PO SCH (21:13)
[2018-05-03] MEDS: Atorvastatin Calcium 20 MG TAB PO SCH (21:13)
--- NOTE | 2018-05-03 23:27 | CON ---
DATE OF CONSULTATION: 05/03/2018 REASON FOR CONSULTATION: Findings in the right subdiaphragmatic area. HISTORY OF PRESENT ILLNESS: An 87-year-old patient who has a history of atrial fibrillation with prior ablation, hypertension, prior TIAs, some element of cognitive dysfunction, and prior episode of empyema, which was managed with thoracoscopic decortication in 11/2016, who is a resident at [facility] and was brought to emergency room because of recurrent falls. Patient has quite significant memory impairment and could not provide an accurate and reliable subjective report. The most of the history is obtained from the record. His initial evaluation demonstrated, temperature 98.8, heart rate 80, BP 130/60, respirations of 18. He is awake, alert, oriented and white cell count was 9.0 with platelets 287, 58% neutrophils, 22% lymphocytes. Creatinine 1.21. Patient had urinalysis with greater than 50 rbc's, but 4-6 wbc's. Chest x-ray was done, but no evidence of acute cardiopulmonary process. CT of abdomen and pelvis was completed, which demonstrated ring enhancing fluid collection behind the right hepatic lobe posteriorly. The patient had a percutaneous biopsy, CT guided and this has yielded mixed inflammatory infiltrate pending cultures at this time. Currently, Mr. Heard is awake. Again, unable to provide a reliable personal account because of memory impairment. Currently, he denies any headaches, no change in visual symptoms, sore throat, odynophagia, dysphagia. No chest pain, no cough, no abdominal pain. No genitourinary symptoms except for incontinence. Chronic joint symptoms, which are unchanged. PAST MEDICAL HISTORY: Atrial fibrillation, recurrent falls, hypertension, SVT with prior ablation and other interventions on Xarelto, renal insufficiency, TIAs, cognitive dysfunction with dementia, recent episode of empyema in 2017, which required a thoracoscopic decortication. At that time, patient had pathology showing an inflammatory infiltrates, AFB cultures and routine cultures were negative. PAST SURGICAL HISTORY: Cardiac ablation, knee arthroplasty left side, rotator cuff repair, cholecystectomy. CURRENT MEDICATIONS: Amiodarone, atorvastatin, enoxaparin, finasteride, pantoprazole. ALLERGIES: PENICILLIN with rash. SOCIAL HISTORY: He is a [facility] resident, former smoker, used to work as a [employer] truck driver. PHYSICAL EXAMINATION: GENERAL: Appears in no distress. SKIN: Shows an area of abrasion on the anterior right ankle with a central ulcerated area, quite superficial. Heel area of deep tissue injury on the left side. The presacral area appears okay. Patient is voiding in the diaper. He has peripheral IV access. No lymphadenopathy. HEENT: Ocular movements are conjugate. Oral cavity with numerous missing teeth. Remainder ones in quite a bit of decay. NECK: Supple, no jugular venous distention. LUNGS: Symmetric air entry. HEART: S1, S2, regular rate. No S3, S4. ABDOMEN: Soft, not distended or tender. No ascites. No bladder distention or maybe a question of bladder distention. EXTREMITIES: No joint inflammatory activity. Pulses are diminished in dorsalis pedis, popliteals are 1+. Cap refill is normal. Some element of onychodystrophy. He moves extremities equally. NEUROLOGIC: He is awake, difficulty in recalling recent and other older events. LABORATORY DATA: Urinalysis has been described above. The white cell count is 8.6, hemoglobin 9.2, platelets 290. Creatinine 1.01. Acid fast negative thus far. Gram stain from the abdomen aspirate with many wbcs with no organisms thus far. Cultures are pending. ASSESSMENT: 1. Supraventricular tachycardia. 2. Recent episode of a decortication for management of empyema with negative cultures including acid-fast bacilli cultures. 3. Subdiaphragmatic retroperitoneal inflammatory process with central areas of hypodensity likely an extension from the previous empyema or the other way around. Maybe this whole thing started as a subdiaphragmatic abscess, which extended into the right lung region. Now, we will probably have the residual phenomenon that was managed in 2017. The organisms could include Staphylococcus aureus, Gram negative rods, Streptococci, and anaerobes. Actinomyces is a significant possibility. Fungal pathogens and mycobacterial pathogens not ruled out. We will make sure that fungal cultures are added to the workup. Hopefully, something is retrieved from the current cultures, so we can target with antimicrobial therapy. May require I+D of site + antimicrobial therapy. MTDD
[2018-05-04] MEDS: Enoxaparin Sodium 80 MG/0.8 ML SYRINGE SC SCH (09:08)
[2018-05-04] MEDS: Amiodarone 200 MG TAB PO SCH (09:09)
--- NOTE | 2018-05-04 11:36 | PDOC.PN ---
- Subjective Encounter Start Date: 05/04/18 Encounter Start Time: 08:30 Subjective: no sob, some vague pain in the sides of abd (cant localize) -: no nausea or vomiting, comfortable -: had his breakfast this am - Objective Resuscitation Status: Resuscitation Status FULL:Full Resuscitation MAR Reviewed: Yes Vital Signs & Weight: Vital Signs (12 hours) Temp Pulse Resp BP Pulse Ox 05/04/18 07:38 97.8 F 57 L 22 H 172/78 H 94 L 05/04/18 04:00 98.5 F 62 18 173/69 H 98 Weight Admit Weight 160 lb 14.4 oz Weight 159 lb 2 oz I&O: 05/03/18 05/04/18 05/05/18 06:59 06:59 06:59 Intake Total 1145 845 Balance 1145 845 Result Diagrams: 05/01/18 05:04 05/01/18 05:04 Phys Exam - Physical Examination HEENT: PERRLA, moist MMs Neck: no JVD, supple Respiratory: no wheezing, no rales Cardiovascular: RRR, no significant murmur Gastrointestinal: soft, non-tender, positive bowel sounds Musculoskeletal: no edema, pulses present Neurological: non-focal, moves all 4 limbs responds well to questions, not fully oriented Dx/Plan (1) Retroperitoneal mass Code(s): R19.00 - INTRA-ABD AND PELVIC SWELLING, MASS AND LUMP, UNSP SITE Status: Acute Comment: biopsy reveals inflammatory cells (2) Chronic anemia Code(s): D64.9 - ANEMIA, UNSPECIFIED Status: Chronic (3) BPH (benign prostatic hyperplasia) Code(s): N40.0 - BENIGN PROSTATIC HYPERPLASIA WITHOUT LOWER URINRY TRACT SYMP Status: Chronic Qualifiers: Lower urinary tract symptom presence: unspecified whether lower urinary tract symptoms present Qualified Code(s): N40.0 - Benign prostatic hyperplasia without lower urinary tract symptoms (4) Atrial fibrillation Code(s): I48.91 - UNSPECIFIED ATRIAL FIBRILLATION Status: Chronic Qualifiers: Atrial fibrillation type: chronic Qualified Code(s): I48.2 - Chronic atrial fibrillation Comment: rate controlled (5) Dyslipidemia Code(s): E78.5 - HYPERLIPIDEMIA, UNSPECIFIED Status: Chronic (6) H/O: CVA (cerebrovascular accident) Code(s): Z86.73 - PRSNL HX OF TIA (TIA), AND CEREB INFRC W/O RESID DEFICITS Status: Chronic (7) Hypertension Code(s): I10 - ESSENTIAL (PRIMARY) HYPERTENSION Status: Chronic Qualifiers: Hypertension type: essential hypertension Qualified Code(s): I10 - Essential (primary) hypertension - Plan d/w and -: hold lovenox for now -: augmentin for 4 weeks -: await cts opinion -: on amiodarone, lipitor and finasteride * . Review of Systems - Medications/Allergies Allergies/Adverse Reactions: Allergies Allergy/AdvReac Type Severity Reaction Status Date / Time Penicillins Allergy Intermediate Hives Verified 02/25/18 23:18 Medications: Current Medications Amiodarone HCl (Cordarone) 200 mg PO DAILY [facility] Last Admin: 05/04/18 09:09 Dose: 200 mg Atorvastatin Calcium (Lipitor) 20 mg PO HS [facility] Last Admin: 05/03/18 21:13 Dose: 20 mg Enoxaparin Sodium (Lovenox) 70 mg SC 0900,2100 [facility] Last Admin: 05/04/18 09:08 Dose: 70 mg Finasteride (Proscar) 5 mg PO HS [facility] Last Admin: 05/03/18 21:13 Dose: 5 mg Pantoprazole Sodium (Protonix) 40 mg PO DAILY [facility] Last Admin: 05/04/18 09:09 Dose: 40 mg Sodium Chloride (Flush - Normal Saline) 10 ml IVF Q12HR [facility] Last Admin: 05/04/18 09:14 Dose: 10 ml Sodium Chloride (Flush - Normal Saline) 10 ml IVF PRN PRN PRN Reason: Saline Flush
--- NOTE | 2018-05-04 13:06 | CON ---
DATE OF CONSULTATION: 05/04/2018 HISTORY OF PRESENT ILLNESS: This is an 87-year-old gentleman who has had multiple falls over the las t year without injury to the present time. Unfortunately, the patient, although very pleasant, is de mented and a very poor historian. He has had multiple hospital admissions since 04/2017. At that ad mission, he was noted to have an empyema of his left chest and underwent thoracoscopy. Thoracentesis and cultures intraoperatively were negative. He did not return for followup; however, was admitted in October with a right-sided chest pain and then in February again with a falling episode. CT scans from those admissions showed an ill-defined area in the right suprahepatic area. On this admission it wa s more clearly evaluated with needle aspiration which showed no evidence of malignancy, but the prese nce of inflammatory reaction. Cultures were negative. The patient has had normal white count and navarro s been afebrile and has no complaints in regards to his right chest. PAST MEDICAL HISTORY: History of recurrent atrial fibrillation on anticoagulation. The patient has a history of hypertension. He has had a carotid ultrasound demonstrating a 50-69% left carotid steno sis. PAST SURGICAL HISTORY: Includes the right-sided thoracoscopy, a previous cardiac atrial fibrillation ablation, a previous knee surgery, right rotator cuff surgery and cholecystectomy by review of recor ds. PHYSICAL EXAMINATION: GENERAL: He is an alert, cooperative gentleman in no distress. NECK: Examination reveals a left carotid bruit. CARDIAC: Exam reveals a systolic murmur grade 1-2/6 in the aortic valve area. LUNGS: Clear to auscultation bilaterally. He has no tenderness. No protuberance on his chest wall. ABDOMEN: Firm, nontender. EXTREMITIES: He has palpable femoral and popliteal pulses bilaterally with no peripheral edema. PLAN: At this time, the patient appears to have a residual inflammatory reaction, probably at the haney lcus in the most inferior aspect of the right pleural space, perhaps subdiaphragmatic, but in any galo nt, he is afebrile. Negative cultures, normal white count and would tend toward nonaggressive treatm ent of this.
[2018-05-04] MEDS: Atorvastatin Calcium 20 MG TAB PO SCH (20:02)
[2018-05-04] MEDS: Finasteride 5 MG TAB PO SCH (20:02)
[2018-05-05] MEDS: Amiodarone 200 MG TAB PO SCH (08:58)
--- NOTE | 2018-05-05 15:05 | PDOC.PN ---
- Subjective Encounter Start Date: 05/05/18 Encounter Start Time: 08:00 Subjective: no abd pain or sob -: feels better, had breakfast is resting now - Objective Resuscitation Status: Resuscitation Status FULL:Full Resuscitation MAR Reviewed: Yes Vital Signs & Weight: Vital Signs (12 hours) Temp Pulse Resp BP Pulse Ox 05/05/18 13:14 191/76 H 05/05/18 12:29 97.7 F 64 16 200/73 H 98 05/05/18 08:00 98.4 F 57 L 18 96 05/05/18 07:46 98.4 F 57 L 18 164/64 H 96 Weight Admit Weight 160 lb 14.4 oz Weight 159 lb 2 oz I&O: 05/04/18 05/05/18 05/06/18 06:59 06:59 06:59 Intake Total 845 500 Balance 845 500 Result Diagrams: 05/01/18 05:04 05/01/18 05:04 Phys Exam - Physical Examination HEENT: PERRLA, moist MMs Neck: no JVD, supple Respiratory: no wheezing, no rales Cardiovascular: RRR, no significant murmur Gastrointestinal: soft, non-tender, positive bowel sounds Musculoskeletal: no edema, pulses present Neurological: non-focal, moves all 4 limbs Dx/Plan (1) Retroperitoneal mass Code(s): R19.00 - INTRA-ABD AND PELVIC SWELLING, MASS AND LUMP, UNSP SITE Status: Acute Comment: biopsy reveals inflammatory cells (2) Chronic anemia Code(s): D64.9 - ANEMIA, UNSPECIFIED Status: Chronic (3) BPH (benign prostatic hyperplasia) Code(s): N40.0 - BENIGN PROSTATIC HYPERPLASIA WITHOUT LOWER URINRY TRACT SYMP Status: Chronic Qualifiers: Lower urinary tract symptom presence: unspecified whether lower urinary tract symptoms present Qualified Code(s): N40.0 - Benign prostatic hyperplasia without lower urinary tract symptoms (4) Atrial fibrillation Code(s): I48.91 - UNSPECIFIED ATRIAL FIBRILLATION Status: Chronic Qualifiers: Atrial fibrillation type: chronic Qualified Code(s): I48.2 - Chronic atrial fibrillation Comment: rate controlled (5) Dyslipidemia Code(s): E78.5 - HYPERLIPIDEMIA, UNSPECIFIED Status: Chronic (6) H/O: CVA (cerebrovascular accident) Code(s): Z86.73 - PRSNL HX OF TIA (TIA), AND CEREB INFRC W/O RESID DEFICITS Status: Chronic (7) Hypertension Code(s): I10 - ESSENTIAL (PRIMARY) HYPERTENSION Status: Chronic Qualifiers: Hypertension type: essential hypertension Qualified Code(s): I10 - Essential (primary) hypertension - Plan trial of augmentin to see if he is truly allergic to pcn -: d/w above with -: currently is not septic -: dc plan in am if he tolerates augmentin to snf * . Review of Systems - Medications/Allergies Allergies/Adverse Reactions: Allergies Allergy/AdvReac Type Severity Reaction Status Date / Time Penicillins Allergy Intermediate Hives Verified 02/25/18 23:18 Medications: Current Medications Amiodarone HCl (Cordarone) 200 mg PO DAILY [facility] Last Admin: 05/05/18 08:58 Dose: 200 mg Amoxicillin/Clavulanate Potassium (Augmentin) 875 mg PO Q12HR [facility] Atorvastatin Calcium (Lipitor) 20 mg PO HS [facility] Last Admin: 05/04/18 20:02 Dose: 20 mg Finasteride (Proscar) 5 mg PO HS [facility] Last Admin: 05/04/18 20:02 Dose: 5 mg Pantoprazole Sodium (Protonix) 40 mg PO DAILY [facility] Last Admin: 05/05/18 08:58 Dose: 40 mg Sodium Chloride (Flush - Normal Saline) 10 ml IVF Q12HR [facility] Last Admin: 05/05/18 08:58 Dose: 10 ml Sodium Chloride (Flush - Normal Saline) 10 ml IVF PRN PRN PRN Reason: Saline Flush
[2018-05-05] MEDS: Atorvastatin Calcium 20 MG TAB PO SCH (21:04)
[2018-05-05] MEDS: Amoxicillin/Potassium Clav 875 MG TAB PO SCH (21:04)
[2018-05-05] MEDS: Finasteride 5 MG TAB PO SCH (21:04)
[2018-05-06 07:56] VITALS: BP 170/56; TEMP 97.8
[2018-05-06] MEDS: Amiodarone 200 MG TAB PO SCH (08:17)
[2018-05-06] MEDS: Amoxicillin/Potassium Clav 875 MG TAB PO SCH (08:17)
[2018-05-06] MEDS ORDERED: Ferrous Sulfate 325 MG TAB PO SCH (09:00)
[2018-05-06] MEDS ORDERED: Multivit, Therapeutic 1 TAB PO SCH (09:00)
[2018-05-06] MEDS ORDERED: Lisinopril 5 MG TAB PO SCH (09:00)
--- NOTE | 2018-05-06 12:07 | PDOC.PN ---
- Subjective Encounter Start Date: 05/06/18 Encounter Start Time: 09:00 Subjective: feels good, no abd pain or sob - Objective Resuscitation Status: Resuscitation Status FULL:Full Resuscitation MAR Reviewed: Yes Vital Signs & Weight: Vital Signs (12 hours) Temp Pulse Resp BP BP Pulse Ox 05/06/18 10:02 78 170/56 H 05/06/18 08:00 97.8 F 66 18 96 05/06/18 07:54 97.8 F 66 18 170/56 H 96 Weight Admit Weight 160 lb 14.4 oz Weight 156 lb 7 oz I&O: 05/05/18 05/06/18 05/07/18 06:59 06:59 06:59 Intake Total 500 120 Balance 500 120 Result Diagrams: 05/01/18 05:04 05/01/18 05:04 Phys Exam - Physical Examination HEENT: PERRLA, moist MMs Neck: no JVD, supple Respiratory: no wheezing, no rales Cardiovascular: RRR, no significant murmur Gastrointestinal: soft, non-tender, positive bowel sounds Musculoskeletal: no edema, pulses present Neurological: non-focal, moves all 4 limbs Dx/Plan (1) Retroperitoneal mass Code(s): R19.00 - INTRA-ABD AND PELVIC SWELLING, MASS AND LUMP, UNSP SITE Status: Acute Comment: biopsy reveals inflammatory cells (2) Chronic anemia Code(s): D64.9 - ANEMIA, UNSPECIFIED Status: Chronic (3) BPH (benign prostatic hyperplasia) Code(s): N40.0 - BENIGN PROSTATIC HYPERPLASIA WITHOUT LOWER URINRY TRACT SYMP Status: Chronic Qualifiers: Lower urinary tract symptom presence: unspecified whether lower urinary tract symptoms present Qualified Code(s): N40.0 - Benign prostatic hyperplasia without lower urinary tract symptoms (4) Atrial fibrillation Code(s): I48.91 - UNSPECIFIED ATRIAL FIBRILLATION Status: Chronic Qualifiers: Atrial fibrillation type: chronic Qualified Code(s): I48.2 - Chronic atrial fibrillation Comment: rate controlled (5) Dyslipidemia Code(s): E78.5 - HYPERLIPIDEMIA, UNSPECIFIED Status: Chronic (6) H/O: CVA (cerebrovascular accident) Code(s): Z86.73 - PRSNL HX OF TIA (TIA), AND CEREB INFRC W/O RESID DEFICITS Status: Chronic (7) Hypertension Code(s): I10 - ESSENTIAL (PRIMARY) HYPERTENSION Status: Chronic Qualifiers: Hypertension type: essential hypertension Qualified Code(s): I10 - Essential (primary) hypertension - Plan augmentin for 4 weeks -: hemostable -: dc pt to snf -: has not had any untoward reactions to augmentin * . Review of Systems - Medications/Allergies Allergies/Adverse Reactions: Allergies Allergy/AdvReac Type Severity Reaction Status Date / Time Penicillins Allergy Intermediate Hives Verified 02/25/18 23:18
[2018-05-06] MEDS ORDERED: Terazosin HCl 5 MG CAP PO SCH (21:00)
[2018-05-06] MEDS ORDERED: Rivaroxaban 15 MG TAB PO SCH (21:00)
--- NOTE | 2018-05-07 21:22 | DIS ---
DATE OF ADMISSION: 04/30/2018 DATE OF DISCHARGE: 05/06/2018 DISCHARGE DISPOSITION: To [facility]. 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 SECONDARY DISCHARGE DIAGNOSES: Chronic atrial fibrillation, history of CVA, dyslipidemia, benign pro static hypertrophy, hypotension. PROCEDURES DONE DURING HOSPITALIZATION: The patient had CT brain done on the day of admission, which showed no acute intracranial hemorrhage or mass effect. CT of the abdomen and pelvis with contrast done showed multifocal ring enhancing fluid collections behind the right hepatic lobe posteriorly tara picious for abscess formation. There is left inguinal hernia containing large bowel without obstruct ion and diverticulosis without inflammatory changes. The patient had a CT guided aspiration/biopsy o f the peritoneal ring enhancing lesions done. Histopathology reveals mixed inflammatory infiltrate. There was no evidence of malignancy. Hemoglobin and hematocrit 9 and 28, platelet count was 290, wh ite count of 8.6, BUN and creatinine 17 and 1.0. Gram stain of the retroperitoneal aspirate shows no organisms seen. There are many WBCs seen. Acid fast bacilli done are negative on the retroperitone al aspirate. Stool occult blood was positive. Has had serial hemoglobin and hematocrit done which h as remained stable at 9 and 28. INPATIENT CONSULTS: Dr. Almanza for Gastroenterology, Dr. Lambert for General Surgery, Dr. Cabral for Vascular Surgery and Dr. Oconnor for Cardiology. DISCHARGE MEDICATIONS: Augmentin 875 mg p.o. twice daily for 30 days, atorvastatin 20 mg p.o. at bed time, amiodarone 200 mg p.o. daily, vitamin D3 5000 units p.o. daily, ferrous sulfate 325 mg [address]o. [place] [place], finasteride 5 mg p.o. at bedtime, Toprol-XL 25 mg p.o. at bedtime, Remeron 15 mg p.o. daily, mult ivitamin 1 tab once daily, Xarelto 15 mg p.o. at bedtime, Hytrin 5 mg p.o. at bedtime, ranitidine 150 mg p.o. daily. ALLERGIES: PENICILLIN. DISCHARGE PLAN: Patient to follow up with primary care physician in [address] Oconnor as advi sed. BRIEF COURSE DURING HOSPITALIZATION: Patient initially got admitted on the after he was sent fr [facility] for history of multiple falls and possible GI bleed. The patient had a CT of the abdome n and pelvis with contrast done which incidentally revealed ring enhancing lesions seen behind the li lissy and the retroperitoneal space. Also, his stool occult blood was positive on arrival. The patien t was on Xarelto and this was held. He has had serial hemoglobin and hematocrit done which remained stable. The patient had CT guided aspiration/biopsy of the retroperitoneal mass. This revealed infl ammatory cells with no evidence of malignancy. He has had consultation with Dr. Ortiz. The patient has had prior history of empyema and had thoracoscopic evacuation of the same by Dr. Cabral. He was r econsulted to evaluate the patient. As patient is not septic and is asymptomatic, no intervention wa s done for the retroperitoneal mass. The patient is 87 years old and is a [facility] resident. Th e patient had history of allergy to PENICILLIN, hence he was given 2 doses of Augmentin here for whic h he did not have any untoward reaction. He needs to continue Augmentin for a total of 4 weeks for t he retroperitoneal likely loculated abscess/sterile. If patient were to develop fever or becomes sym ptomatic, he likely will need evacuation of the mass and Dr. Cabral needs to be consulted. A total of 35 minutes was spent on discharge plan. Please see a [id number] documentation on [facility] for the day of discharge.
[2018-05-09 10:41] LABS: Fungus Stain Final report (.)
== END 2018-05-06 11:40 | DRG 357 ==
LOC: ERS 22:17 → 2NO 04-30 03:56 → T4-A 05-03 09:45
PROVIDERS: ADMIT Internal Medicine; ATTEND Internal Medicine
PROC: 0W9H3ZX Drainage of Retroperitoneum, Percutaneous Approach, Diagnostic (ICD-10-PCS; principal; 2018-05-01)
DX: R19.09 Other intra-abdominal and pelvic swelling, mass and lump (principal); K92.1 Melena; I48.2 Chronic atrial fibrillation; R31.9 Hematuria, unspecified; N40.0 Benign prostatic hyperplasia without lower urinary tract symptoms; I95.9 Hypotension, unspecified; K40.90 Unilateral inguinal hernia, without obstruction or gangrene, not specified as recurrent; K57.90 Diverticulosis of intestine, part unspecified, without perforation or abscess without bleeding; J45.909 Unspecified asthma, uncomplicated; F03.90 Unspecified dementia, unspecified severity, without behavioral disturbance, psychotic disturbance, mood disturbance, and anxiety; I12.9 Hypertensive chronic kidney disease with stage 1 through stage 4 chronic kidney disease, or unspecified chronic kidney disease; Z79.01 Long term (current) use of anticoagulants; Z86.73 Personal history of transient ischemic attack (TIA), and cerebral infarction without residual deficits; Z88.0 Allergy status to penicillin; Z87.891 Personal history of nicotine dependence; N18.3 Chronic kidney disease, stage 3 (moderate); E78.5 Hyperlipidemia, unspecified; Z91.81 History of falling; L89.621 Pressure ulcer of left heel, stage 1; W17.89XA Other fall from one level to another, initial encounter; Y92.129 Unspecified place in nursing home as the place of occurrence of the external cause
CPT/HCPCS: 36415; 49180; 70450; 74177; 77012; 80048; 81003; 81015; 82274; 82607; 85025; 85610; 85730; 86850; 86900; 86901; 87102; 87116; 87205; 87206; 88305; 88312; 88341; 88342; 96374; A4216; C9113; G8978-GP-CL; G8979-GP-CK; G8987-GO-CL; G8988-GO-CJ; J1650; J2250; J3010

== ENCOUNTER 2018-07-14 16:42 | Emergency (ER) | payer MEDICARE, MEDICAID ==
[2018-07-14 17:45] LABS: #Basophils 0.1 thou/uL (0.0-0.2); #Eosinphils 0.5 thou/uL (0.0-0.7); #Lymphocytes 1.6 thou/uL (1.20-3.40); #Monocytes 0.9 thou/uL (0.11-0.59); #Neutrophils 4.9 thou/uL (1.40-6.50); %Basophils 1.1 % (0.0-1.0); %Eosinophils 6.2 % (0.0-10.0); %Lymphocytes 19.6 % (21.0-51.0); %Monocytes 11.4 % (0.0-10.0); %Neutrophils 61.6 % (42.0-75.0); Hemoglobin 11.1 g/dL (14.0-18.0); Mean Corpuscular HGB CONC 30.4 g/dL (32.0-36.0); Mean Corpuscular Hemoglobin 25.4 pg (27.0-31.0); Mean Corpuscular Volume 83.7 fL (78.0-98.0); Mean Platelet Volume 6.7 fL (7.4-10.4); Platelet Count 301 thou/uL (130-400); Red Blood Cell (RBC) Count 4.38 mill/uL (4.70-6.10); White Blood Cell (WBC) Count 7.9 thou/uL (4.8-10.8)
[2018-07-14 17:51] LABS: INR-International Normal Ratio 1.6; PTT 41.7 SEC (22.9-36.1); Prothrombin Time 19.1 SEC (12.0-14.7)
[2018-07-14 18:04] LABS: ALT (SGPT) 8 U/L (8-55); AST (SGOT) 15 U/L (5-34); Albumin 3.6 g/dL (3.4-4.8); Alkaline Phosphatase 86 U/L (40-150); Anion Gap 9 mmol/L (10-20); BUN (Urea Nitrogen) 28 mg/dL (8.4-25.7); Bilirubin, Total 0.6 mg/dL (0.2-1.2); Calc. Creatinine Clearance 0 mL/min (70-130); Calcium 9.7 mg/dL (7.8-10.44); Carbon Dioxide 28 mmol/L (23-31); Chloride 105 mmol/L (98-107); Estimated GFR-MDRD 50; Globulin 3.9 g/dL (2.4-3.5); Glucose 122 mg/dL (83-110); Potassium 4.2 mmol/L (3.5-5.1); Protein, Total 7.5 g/dL (5.8-8.1); Sodium 138 mmol/L (136-145)
[2018-07-14 18:31] LABS: Bilirubin Negative (Negative); Blood, Urine Negative (Negative); Clarity CLEAR (Clear); Glucose, Urine (Dipstick) Negative (Negative); Leukocyte Negative (Negative); Nitrite Negative (Negative); Protein, Urine (Dipstick) Negative (Neg-Trace)
--- NOTE | 2018-07-14 18:38 | CT ---
CT OF THE BRAIN WITHOUT CONTRAST: 07/14/18 HISTORY: Fall, trauma to the right posterior head, headache. FINDINGS: Comparison made with the exam of 04/30/18. Changes of cortical atrophy and chronic small vessel ischemic disease are again seen. The ventricular size is stable and the basilar cisterns patent. No evidence of acute infarct, hemorrhage, midline sh ift or abnormal extra-axial fluid collections are seen. The bony calvarium is intact. The visualized paranasal sinuses and mastoid air cells are well aerated. IMPRESSION: No CT evidence of acute intracranial process. POS: [facility]
== END 2018-07-14 19:57 | disposition home or self-care (01) ==
LOC: ERS 16:42
DX: S00.03XA Contusion of scalp, initial encounter (principal); I10 Essential (primary) hypertension; Z87.891 Personal history of nicotine dependence; Z79.899 Other long term (current) drug therapy; W01.198A Fall on same level from slipping, tripping and stumbling with subsequent striking against other object, initial encounter
CPT/HCPCS: 36415; 70450; 80053; 81003; 85025; 85610; 85730

== ENCOUNTER 2018-08-01 21:05 | Observation (INO) | payer MEDICARE, MEDICAID ==
[2018-08-01 23:04] LABS: #Basophils 0.1 thou/uL (0.0-0.2); #Eosinphils 0.4 thou/uL (0.0-0.7); #Lymphocytes 1.5 thou/uL (1.20-3.40); #Neutrophils 7.3 thou/uL (1.40-6.50); %Basophils 0.6 % (0.0-1.0); %Eosinophils 3.4 % (0.0-10.0); %Lymphocytes 14.7 % (21.0-51.0); %Monocytes 9.5 % (0.0-10.0); %Neutrophils 71.9 % (42.0-75.0); Hemoglobin 11.3 g/dL (14.0-18.0); Mean Corpuscular HGB CONC 31.7 g/dL (32.0-36.0); Mean Platelet Volume 6.7 fL (7.4-10.4); Platelet Count 312 thou/uL (130-400); RBC Distribution Width 13.2 % (11.5-14.5); Red Blood Cell (RBC) Count 4.37 mill/uL (4.70-6.10); White Blood Cell (WBC) Count 10.2 thou/uL (4.8-10.8)
--- NOTE | 2018-08-01 23:06 | RAD ---
CHEST ONE VIEW: 08/01/18 HISTORY: Fall. Chest pain. COMPARISON: 02/27/18. FINDINGS: The cardiac silhouette is magnified by projection. Pulmonary vasculature unremarkable. Mediastinum is midline. No lobar consolidation or evidence of pneumothorax. IMPRESSION: No active cardiopulmonary abnormalities are demonstrated. POS: [facility]
[2018-08-01 23:09] LABS: PTT 52.9 SEC (22.9-36.1); Prothrombin Time 31.2 SEC (12.0-14.7)
--- NOTE | 2018-08-01 23:14 | CT ---
CT HEAD NONCONTRAST: 08/01/18 HISTORY: Headache. COMPARISON: 07/14/18. FINDINGS: There is no evidence of acute intracranial hemorrhage or infarct. Diffuse cortical atrophy and chroni c ischemic small vessel disease are again demonstrated. No mass effect or shift of midline structures . The visualized paranasal sinuses remain well aerated. IMPRESSION: Chronic type findings are stable. No acute intracranial abnormalities are demonstrated. POS: [facility]
[2018-08-01 23:25] LABS: ALT (SGPT) Less than 7 U/L (8-55); AST (SGOT) 13 U/L (5-34); Albumin 3.6 g/dL (3.4-4.8); Alkaline Phosphatase 80 U/L (40-150); Anion Gap 10 mmol/L (10-20); BUN (Urea Nitrogen) 26 mg/dL (8.4-25.7); Bilirubin, Total 0.8 mg/dL (0.2-1.2); Calc. Creatinine Clearance 0 mL/min (70-130); Carbon Dioxide 27 mmol/L (23-31); Chloride 105 mmol/L (98-107); Estimated GFR-MDRD 53; Globulin 4.1 g/dL (2.4-3.5); Glucose 122 mg/dL (83-110); Potassium 4.2 mmol/L (3.5-5.1); Protein, Total 7.7 g/dL (5.8-8.1); Sodium 138 mmol/L (136-145)
--- NOTE | 2018-08-01 23:26 | CT ---
CT CERVICAL SPINE NONCONTRAST: 08/01/18 HISTORY: Neck injury. COMPARISON: 02/25/18. FINDINGS: Vertebral body heights and AP alignment are maintained. Multilevel disc space narrowing and osteophyt osis. Cervicothoracic junction is intact. No acute fracture or dislocation. Calcification throughout the arterial structures. IMPRESSION: Degenerative changes cervical spine. No acute osseous abnormalities are demonstrated. Atherosclerosis. POS: [facility]
[2018-08-01 23:28] LABS: CKMB 2.1 ng/mL (0-6.6); Troponin I 0.128 ng/mL (< 0.028)
[2018-08-02 00:30] LABS: Bilirubin Negative (Negative); Blood, Urine Negative (Negative); Clarity CLEAR (Clear); Glucose, Urine (Dipstick) Negative (Negative); Leukocyte Negative (Negative); Nitrite Negative (Negative); Protein, Urine (Dipstick) Negative (Neg-Trace); Specific Gravity, Urine 1.012 (1.002-1.036)
[2018-08-02] MEDS ORDERED: Ondansetron ODT 4 MG TAB SL PRN (01:54)
[2018-08-02] MEDS ORDERED: Ondansetron HCl/PF 4 MG/2 ML Vial IVP PRN ×2 (01:54→07:59)
[2018-08-02] MEDS ORDERED: Acetaminophen 325 MG TAB PO PRN ×2 (01:55→07:59)
[2018-08-02 03:00] VITALS: BMI 29.0
[2018-08-02 03:14] LABS: Troponin I 0.131 ng/mL (< 0.028)
[2018-08-02 05:39] LABS: Troponin I 0.144 ng/mL (< 0.028)
[2018-08-02] MEDS ORDERED: Ondansetron ODT 4 MG TAB PO PRN (07:59)
[2018-08-02] MEDS ORDERED: Nitroglycerin 0.4 MG TAB (25 Tab Bottle) SL PRN (07:59)
[2018-08-02] MEDS ORDERED: Cepastat Lozenges 1 LOZ PO PRN (07:59)
[2018-08-02] MEDS ORDERED: Diabetic Tussin 200 MG/10 ML UDCUP PO PRN (07:59)
[2018-08-02] MEDS ORDERED: Eucerin (Mineral Oil/Petrolatum,White) 30 gm Jar TOP PRN (07:59)
[2018-08-02] MEDS ORDERED: hydrALAZINE 20 MG/ML VIAL SLOW IVP PRN (07:59)
[2018-08-02] MEDS ORDERED: Calcium Carbonate 500 MG ChewTAB PO PRN (07:59)
[2018-08-02] MEDS ORDERED: Artificial Tears 18 DROP/0.9 ML EA EYE PRN (07:59)
[2018-08-02] MEDS ORDERED: Zolpidem Tartrate 5 MG TAB PO PRN (07:59)
[2018-08-02] MEDS ORDERED: Sodium Chloride 0.65% Nasal 44 ML BOT EA NARE PRN (07:59)
[2018-08-02] MEDS ORDERED: HYDROcodone/Acetaminophen 5/325 mg Tablet PO PRN (07:59)
[2018-08-02] MEDS ORDERED: Loperamide HCl 2 MG CAP PO PRN (07:59)
[2018-08-02] MEDS ORDERED: Senokot S 8.6-50 MG TAB PO PRN (07:59)
[2018-08-02] MEDS ORDERED: Bisacodyl 10 MG SUPP PR PRN (07:59)
[2018-08-02] MEDS ORDERED: Multivit, Therapeutic 1 TAB PO SCH (09:00)
[2018-08-02] MEDS ORDERED: Ferrous Sulfate 325 MG TAB PO SCH (09:00)
[2018-08-02] MEDS ORDERED: Non-Formulary Item 1 EACH (Ferrous Sulfate [Ferrous Sulfate] 325 MG) PO SCH (09:00)
[2018-08-02] MEDS ORDERED: CHOLECALCIFEROL PO SCH (09:00)
[2018-08-02] MEDS ORDERED: Famotidine 20 MG TAB PO SCH (09:00)
[2018-08-02] MEDS ORDERED: Prevnar 13-Val Conj/PF 0.5 ML SYRINGE IM ONE (09:00)
[2018-08-02] MEDS ORDERED: Amiodarone 200 MG TAB PO SCH (09:00)
[2018-08-02] MEDS ORDERED: Terazosin HCl 5 MG CAP PO SCH (09:00)
--- NOTE | 2018-08-02 11:12 | DIS ---
DATE OF ADMISSION: 08/01/2018 DATE OF DISCHARGE: 08/02/2018 DISCHARGE DISPOSITION: Home/nursing home unit. PRIMARY DISCHARGE DIAGNOSES: 1. Syncope, unexplained, unwitnessed. 2. Elevated troponin. SECONDARY DISCHARGE DIAGNOSES: Paroxysmal atrial fibrillation, senile dementia, benign enlargement o f prostate, chronic normocytic anemia, history of CVA, hypertension, dyslipidemia. PRIMARY PROCEDURE/OPERATION: None. RADIOLOGICAL INVESTIGATION: Chest x-ray, CT cervical spine, brain CT. SIGNIFICANT LABORATORY DATA: Urine normal. Creatinine 1.29. Troponin 0.128. LFT normal. INR 3.0, hemoglobin 11.3. DISCHARGE MEDICATIONS: The patient will continue all his previous medications: Tylenol 650 mg q.4 h ourly p.r.n., amiodarone 200 mg p.o. daily, vitamin D3 5000 units p.o. daily, ferrous sulfate 325 mg p.o. daily, Toprol-XL 25 mg p.o. at bedtime, Remeron 15 mg p.o. at bedtime, Theragran 1 tablet p.o. d aily, ranitidine 150 mg p.o. daily, Xarelto 15 mg p.o. at bedtime, Hytrin 5 mg p.o. daily, Lipitor 20 mg p.o. at bedtime, Proscar 5 mg p.o. at bedtime. CONTRAINDICATIONS: None. CODE STATUS: FULL CODE. INPATIENT CONSULTANTS: Cardiology group was consulted. TEST RESULTS PENDING ON DISCHARGE: None. ALLERGIES: PENICILLIN. DISCHARGE PLAN: Post hospital, the patient will follow up with primary care physician. HOSPITAL COURSE: Please see my HPI for further detail. The patient was admitted for syncope which w as unexplained, unwitnessed. He had elevated troponin. He had PVCs on monitor. The rest of the blo od test was unremarkable. He had a negative workup with a CT brain, CT cervical spine. His blood te st was also unremarkable other than elevated troponin. Cardiology was consulted for further decision . We did not repeat echocardiography because he had recent echocardiography done. At this point, patient is medically stable. We are checking orthostatic vitals while in hospital. I f Cardiology clears, then we will consider discharging back to home/correction.
--- NOTE | 2018-08-02 11:19 | HP ---
PRIMARY CARE PHYSICIAN: Dr. Jefferson Michel. REASON FOR ADMISSION: Syncope. HISTORY OF PRESENT ILLNESS: An 88-year-old male who is an extremely poor historian. As per report, the patient is from [facility] where he had a fall from bed. There was no witnessed and there was no loss of consciousness as per report. As the patient is on blood thinner medicine and that is why he was sent to emergency room for evaluation. Patient did not have any injury to his head. He was not complaining of any pain. Patient reports that when he was trying to reach TV remote, he fell down and subsequently he had mild pain in his occiput without any bleeding. Currently, when I saw this patient, at that time, he denies any pain. He does have chronic back pain, which is unchanged. Patient denies any melena or hematochezia. He denies any abdominal pain. He reports diffusely sore, but nothing new. In the emergency room, the patient was hypertensive. He had elevated troponin in indeterminant range. Patient was admitted as observation status to telemetry floor. His monitor was showing multiple PVCs, polymorphic form. The patient denies any focal motor symptoms. He denies any seizure. He denies any UTI symptoms. He denies any constipation, diarrhea. He denies any chest pain. He denies any blurred vision or focal neurological symptoms. REVIEW OF SYSTEMS: The following complete review of systems was negative, unless otherwise mentioned in the HPI or below: Constitutional: Weight loss or gain, ability to conduct usual activities. Skin: Rash, itching. Eyes: Double vision, pain. ENT/Mouth: Nose bleeding, neck stiffness, pain, tenderness. Cardiovascular: Palpitations, dyspnea on exertion, orthopnea. Respiratory: Shortness of breath, wheezing, cough, hemoptysis, fever or night sweats. Gastrointestinal: Poor appetite, abdominal pain, heartburn, nausea, vomiting, constipation, or diarrhea. Genitourinary: Urgency, frequency, dysuria, nocturia. Musculoskeletal: Pain, swelling. Neurologic/Psychiatric: Anxiety, depression. Allergy/Immunologic: Skin rash, bleeding tendency. Please see my HPI for pertinent positive and negative. All other review of system reviewed and negative except as mentioned in the HPI. Above-mentioned review of systems is not reliable, because of underlying dementia. PAST MEDICAL HISTORY: Chronic anticoagulation with Xarelto, atrial fibrillation , hypertension, dyslipidemia, chronic diastolic heart failure stage C, chronic kidney disease stage 2, gastroesophageal reflux disease, history of TIA, benign enlargement of prostate. PAST SURGICAL HISTORY: Cardiac ablation, left total knee replacement, right rotator cuff repair, cholecystectomy, retroperitoneal mass biopsy. PAST PSYCHIATRIC HISTORY: Reviewed and negative. ALLERGIES: PENICILLIN. FAMILY HISTORY: Diabetes, hypertension runs among several family members. SOCIAL HISTORY: As per report, the patient is from long term. No history of tobacco, alcohol or illicit drug abuse. EMERGENCY ROOM COURSE: Reviewed. CURRENT HOME MEDICATION: Unable to review as pt did not have medication with him. PHYSICAL EXAMINATION: VITAL SIGNS: On arrival, blood pressure is 178/133, pulse 80, respiratory rate 12, temperature 98.0, saturation 98% on room air, weight 88.4 kilograms. GENERAL: Patient is currently alert, awake, baseline demented, hypertensive. HEENT: Head: Normocephalic, atraumatic. Eyes: Pupils round, reactive to light. Extraocular muscle intact. ENT: Oropharynx within normal limits. Moist mucous membrane, no oral lesion, no pharyngeal erythema, no exudate. NECK: Supple, no JVD, no thyromegaly, no carotid bruit. LUNGS: Clear to auscultation, no wheezing, no rhonchi, no rales. CARDIAC: S1, S2 appears irregular. Soft systolic murmur noted, no gallop, no rub. ABDOMEN: Soft, bowel sounds present, nontender, nondistended. No organomegaly , no mass, no suprapubic tenderness. BACK: No point tenderness. Unremarkable, no CVA tenderness. EXTREMITIES: Upper extremity, passive movement of all joints are normal. Lower extremity, no edema. Good distal pulsation. SKIN: No skin rash. HEMATOLOGICAL: No lymphadenopathy. NEUROLOGIC: The patient is alert, oriented x2, moves all 4 limbs. No focal neurological deficit noted. No cerebellar sign. SIGNIFICANT LABORATORY DATA AND IMAGING: EKG showing incomplete right bundle branch block pattern, left axis deviation. CT brain based on my review, no acute intracranial process. CT cervical spine based on my review, no fracture or dislocation. Chest x-ray based on my review, no acute cardiopulmonary process. CBC: WBC 10.2, hemoglobin 11.3, platelet 312. INR 3.0. BMP: Sodium 138, potassium 4.2, chloride 105, carbon dioxide 27, BUN 26, creatinine 1.29, glucose 122, calcium 10.0. LFT: AST 13, ALT less than 7, alkaline phosphatase 80, albumin 3.6, CK-MB 2.1, troponin 0.128, then 0.131 and then 0.144. Urinalysis normal. ASSESSMENT AND PLAN: 1. Syncope unwitnessed, unexplained associated with the fall, rule out cardiac etiology. 2. Elevated troponin with syncope without any chest pain or EKG changes, rule out cardiac etiology. Patient already had echocardiography done recently in 2017, so no need of repeating echocardiography. We will consult Cardiology for their opinion. 3. Paroxysmal atrial fibrillation on chronic anticoagulation therapy. Current episode may be explained by possibly arrhythmia, which needs to be excluded. Currently, monitor is showing polymorphic PVCs. The patient is already on amiodarone 200 mg p.o. daily and Xarelto 15 mg p.o. at bedtime for anticoagulation, which we will continue along with Toprol-XL 25 mg p.o. at bedtime. Further decision will defer to Cardiology. 4. Chronic normocytic anemia. Continue ferrous sulfate 325 mg p.o. daily, multivitamin 1 tablet p.o. daily. 5. Dyslipidemia. Continue Lipitor 20 mg p.o. at bedtime. 6. Benign enlargement of prostate. Continue Hytrin 5 mg p.o. daily, Proscar 5 mg p.o. at bedtime. 7. Gastroesophageal reflux disease. Continue Pepcid 20 mg p.o. b.i.d. 8. Senile dementia. Continue Remeron 15 mg p.o. at bedtime. 9. Deep venous thrombosis prophylaxis not needed, because we are expecting discharge in 24 hours. 10. Gastrointestinal prophylaxis, Pepcid 20 mg p.o. b.i.d. 11. CODE STATUS: The patient is FULL CODE. Disposition plan based on Cardiology recommendation. We are expecting patient discharge later on today if Cardiology clears him. MTDD
[2018-08-02 16:08] VITALS: BP 170/72; TEMP 99
--- NOTE | 2018-08-02 16:24 | CON ---
DATE OF CONSULTATION: 08/02/2018 REASON FOR CONSULTATION: Fall. PRIMARY DIRECTOR COMPLIANCE: Billy Oconnor M.D. HISTORY OF PRESENT ILLNESS: Mr. Heard is a very pleasant 88-year-old gentleman who comes t o the hospital for a fall. He was actually in bed trying to reach his remote and fell to the floor. He hit his head on the way down a couple of times, but nothing major. He was brought to the [facility] for evaluation of the fall and admitted. There has been a diagnosis of syncope; however, he never lost consciousness. He remembers reaching and falling over. Looking at previous notes, he has falle n several times in the recent past. Never has he had any severe falls; however, he continues to hit his head. He tells me that he never had any severe injuries from the falls. PAST MEDICAL HISTORY: 1. Hyperlipidemia. 2. Hypertension. 3. Atrial fibrillation. 4. Chronic kidney disease. 5. . 6. Acid reflux. PAST SURGICAL HISTORY: 1. Knee surgery. 2. Rotator cuff repair. 3. Cholecystectomy. OUTPATIENT MEDICATIONS: Include, 1. Ferrous sulfate. 2. Vitamin D3. 3. Tylenol p.r.n. 4. Xarelto 50 mg at bedtime. 5. Ranitidine 150 mg b.i.d. 6. Toprol-XL 25 mg at bedtime. 7. Amiodarone 200 mg a day. 8. Multivitamin daily. 9. Mirtazapine. 10. Atorvastatin 20 mg at bedtime. 11. Terazosin. 12. Finasteride. ALLERGIES: PENICILLIN. SOCIAL HISTORY: No tobacco or drugs. REVIEW OF SYSTEMS: A 12-point review of systems was done and is all negative unless stated in histor y of present illness. PHYSICAL EXAMINATION: VITAL SIGNS: Temperature 98.0, pulse 63, respiratory rate 16, satting 96% on room air, blood pressur e 116/71. GENERAL: Awake, alert, oriented to person, place, has difficulty with time. He tells me it is 2027, in no distress. HEENT: Normocephalic, atraumatic. NECK: Supple. LUNGS: Clear. CARDIOVASCULAR: S1, S2, no S3, S4. ABDOMEN: Soft. Positive bowel sounds. EXTREMITIES: No edema. SKIN: Warm and dry. LABORATORY WORK: Reviewed. CBC, coags, and chemistries are unremarkable. Troponin is undetermined range. UA was unremarkable. CT of the head and brain were reviewed. ASSESSMENT AND PLAN: 1. Multiple falls. 2. History of atrial fibrillation, chronic anticoagulation. 3. No evidence of syncope, no history of syncope. PLAN: 1. Reviewed most recent echo, he has a normal EF with mild aortic stenosis, peak gradient of 25. Un likely to be related to his episode of fall and he does not describe syncope. 2. We would stop his anticoagulation at this time given his multiple falls and head injuries even th ough they are not severe this is a higher risk for injury with anticoagulation. 3. We would have him considered for Watchman device versus Lariat device given his previous TIA and history of atrial fibrillation. He would be a candidate for this. 4. He will discuss this with his primary academy director, Dr. Oconnor. He may be discharged home any time from the cardiac perspective, there is no active cardiac issue at that time.
[2018-08-02] MEDS ORDERED: Atorvastatin Calcium 20 MG TAB PO SCH (21:00)
[2018-08-02] MEDS ORDERED: Rivaroxaban 10 MG TAB PO SCH (21:00)
[2018-08-02] MEDS ORDERED: Mirtazapine 15 MG TAB PO SCH (21:00)
[2018-08-02] MEDS ORDERED: Rivaroxaban 15 MG TAB PO SCH (21:00)
[2018-08-02] MEDS ORDERED: Finasteride 5 MG TAB PO SCH (21:00)
--- NOTE | 2018-08-03 08:13 | ADD-DIS ---
ADDENDUM: Please see my discharge summary dictated earlier. Patient evaluated by cardiology and they recommend ed to discontinue Xarelto and instead they recommended to continue baby aspirin 81 mg daily. That cathleen tristan needs to be made in the medication reconciliation and the [facility].
== END 2018-08-02 17:45 ==
LOC: ERS 21:05 → 2NO 23:30 → UNDOADMOB 23:30 → 2NO 23:50
PROVIDERS: ADMIT Internal Medicine; ATTEND Internal Medicine
DX: R55 Syncope and collapse (principal); G89.29 Other chronic pain; M54.9 Dorsalgia, unspecified; I13.0 Hypertensive heart and chronic kidney disease with heart failure and stage 1 through stage 4 chronic kidney disease, or unspecified chronic kidney disease; N18.2 Chronic kidney disease, stage 2 (mild); I50.32 Chronic diastolic (congestive) heart failure; D63.1 Anemia in chronic kidney disease; K21.9 Gastro-esophageal reflux disease without esophagitis; N40.0 Benign prostatic hyperplasia without lower urinary tract symptoms; E78.5 Hyperlipidemia, unspecified; I48.0 Paroxysmal atrial fibrillation; F03.90 Unspecified dementia, unspecified severity, without behavioral disturbance, psychotic disturbance, mood disturbance, and anxiety; Z86.73 Personal history of transient ischemic attack (TIA), and cerebral infarction without residual deficits; Z91.81 History of falling; Z79.01 Long term (current) use of anticoagulants; Z79.899 Other long term (current) drug therapy; Z88.0 Allergy status to penicillin; W06.XXXA Fall from bed, initial encounter
CPT/HCPCS: 70450; 71045; 72125; 80053; 81003; 82553; 84484 ×3; 85025; 85610; 85730; 93005; 99285; G0378 ×2; 36415; 90471; 90670; G0009

== ENCOUNTER 2018-08-18 16:20 | Inpatient (IN) | payer MEDICARE, MEDICAID ==
[2018-08-18 17:24] LABS: #Eosinphils 0.3 thou/uL (0.0-0.7); #Lymphocytes 1.5 thou/uL (1.20-3.40); #Monocytes 1.2 thou/uL (0.11-0.59); %Basophils 0.2 % (0.0-1.0); %Lymphocytes 8.7 % (21.0-51.0); %Monocytes 7.3 % (0.0-10.0); %Neutrophils 81.8 % (42.0-75.0); Hemoglobin 10.5 g/dL (14.0-18.0); Mean Corpuscular HGB CONC 30.8 g/dL (32.0-36.0); Mean Corpuscular Hemoglobin 25.5 pg (27.0-31.0); Mean Corpuscular Volume 82.9 fL (78.0-98.0); Mean Platelet Volume 6.8 fL (7.4-10.4); Platelet Count 348 thou/uL (130-400); RBC Distribution Width 13.6 % (11.5-14.5); White Blood Cell (WBC) Count 17.1 thou/uL (4.8-10.8)
[2018-08-18 17:50] LABS: ALT (SGPT) Less than 7 U/L (8-55); AST (SGOT) 12 U/L (5-34); Albumin 3.5 g/dL (3.4-4.8); Alkaline Phosphatase 80 U/L (40-150); Anion Gap 10 mmol/L (10-20); BUN (Urea Nitrogen) 22 mg/dL (8.4-25.7); Bilirubin, Total 0.7 mg/dL (0.2-1.2); Calc. Creatinine Clearance 0 mL/min (70-130); Calcium 9.4 mg/dL (7.8-10.44); Carbon Dioxide 24 mmol/L (23-31); Chloride 103 mmol/L (98-107); Estimated GFR-MDRD 47; Globulin 4.1 g/dL (2.4-3.5); Glucose 105 mg/dL (83-110); Potassium 4.3 mmol/L (3.5-5.1); Protein, Total 7.6 g/dL (5.8-8.1); Sodium 133 mmol/L (136-145)
[2018-08-18] MEDS ORDERED: Acetaminophen 500 MG TAB ONE (17:55)
--- NOTE | 2018-08-18 18:13 | RAD ---
PORTABLE CHEST ONE VIEW: 08/18/18 at 4:35 p.m. HISTORY: Fever. FINDINGS: Comparison made with the exam of 08/01/18. The heart size is normal. The lungs are expanded without focal areas of consolidation, pneumothoraces or pleural effusions. There is no evidence of shelli pulmonary edema. IMPRESSION: No acute process. POS: [facility]
[2018-08-18 19:21] LABS: Bilirubin Negative (Negative); Blood, Urine Moderate (Negative); Clarity CLEAR (Clear); Glucose, Urine (Dipstick) Negative (Negative); Leukocyte Moderate (Negative); Nitrite Positive (Negative); Protein, Urine (Dipstick) Negative (Neg-Trace); Specific Gravity, Urine 1.016 (1.002-1.036); pH, Urine 6.5 (5.0-9.0)
[2018-08-18 19:23] LABS: Bacteria/HPF 4+ HPF (None Seen); Hyaline Casts/LPF 0-3 HYALINE CAST LPF (0-3 Hyaline); Squamous Epithelial None Seen HPF (0-3); WBC/HPF 21-50 HPF (0-3)
--- NOTE | 2018-08-18 20:18 | CT ---
CT BRAIN 08/18/18 HISTORY: History of fall. Patient with history of being on blood thinners. Noncontrast enhanced CT images of the brain is obtained on 08/18/18. Comparison made to previous exam from 08/01/18. CT images of the brain demonstrate cortical atrophy and deep white matter ischemic changes. No eviden ce of acute intracranial masses, hemorrhages, strokes or contusions seen. The mastoid and paranasal s inuses are well aerated. IMPRESSION: Cortical atrophy and deep white matter ischemic changes. POS: [facility]
[2018-08-18] MEDS ORDERED: Pharmacy to Dose AZTREONAM IVPB PRN (22:09)
[2018-08-18] MEDS ORDERED: Ondansetron ODT 4 MG TAB PO PRN (22:15)
[2018-08-18] MEDS ORDERED: Bisacodyl 5 MG TAB PO PRN (22:15)
[2018-08-18] MEDS ORDERED: Senokot S 8.6-50 MG TAB PO PRN (22:15)
[2018-08-18] MEDS ORDERED: Acetaminophen 325 MG TAB PO PRN (22:15)
[2018-08-18] MEDS ORDERED: Ondansetron PF 4 MG/2 ML Vial IVP PRN ×2 (22:15→22:23)
[2018-08-18] MEDS ORDERED: Non-Formulary Item 1 EACH (Acetaminophen [Tylenol] 650 MG) PO PRN (22:21)
[2018-08-18] MEDS ORDERED: Sodium Chloride 0.9% 1,000 ML IV SCH (22:23)
[2018-08-18] MEDS ORDERED: Ondansetron ODT 4 MG TAB SL PRN (22:23)
[2018-08-18 22:51] VITALS: BMI 28.8
[2018-08-18] MEDS: Sodium Chloride 0.9% 1,000 ML IV SCH (22:54)
[2018-08-19 04:50] LABS: #Eosinphils 0.5 thou/uL (0.0-0.7); #Lymphocytes 1.7 thou/uL (1.20-3.40); #Monocytes 1.2 thou/uL (0.11-0.59); #Neutrophils 13.6 thou/uL (1.40-6.50); %Basophils 0.2 % (0.0-1.0); %Lymphocytes 9.8 % (21.0-51.0); %Monocytes 7.1 % (0.0-10.0); Hemoglobin 9.4 g/dL (14.0-18.0); Mean Corpuscular HGB CONC 30.9 g/dL (32.0-36.0); Mean Corpuscular Hemoglobin 25.3 pg (27.0-31.0); Mean Corpuscular Volume 82.1 fL (78.0-98.0); Mean Platelet Volume 6.8 fL (7.4-10.4); Platelet Count 301 thou/uL (130-400); RBC Distribution Width 13.5 % (11.5-14.5)
[2018-08-19 05:09] LABS: Albumin 2.9 g/dL (3.4-4.8); Anion Gap 8 mmol/L (10-20); BUN (Urea Nitrogen) 17 mg/dL (8.4-25.7); BUN/Creatinine Ratio 15.18; Calc. Creatinine Clearance 52 mL/min (70-130); Calcium 8.9 mg/dL (7.8-10.44); Carbon Dioxide 25 mmol/L (23-31); Chloride 107 mmol/L (98-107); Estimated GFR-MDRD 62; Glucose 99 mg/dL (83-110); Phosphorus 2.7 mg/dL (2.3-4.7); Sodium 136 mmol/L (136-145)
[2018-08-19] MEDS: Aztreonam 1 GM in Sodium Chloride 0.9% 100 ML IVPB SCH ×3 (05:48→21:00)
[2018-08-19] MEDS: Sodium Chloride 0.9% 1,000 ML IV SCH ×3 (05:49→21:00)
--- NOTE | 2018-08-19 06:28 | HP ---
CHIEF COMPLAINT: Fall. HISTORY OF PRESENT ILLNESS: This is an 88-year-old male, poor historian with past medical history of chronic falls, atrial fibrillation on anticoagulation, hypertension, hyperlipidemia, chronic diastolic congestive heart failure, chronic kidney disease, GERD, history of TIA, BPH, presenting with alteration of awareness and status post fall. Per records, patient has had recurrent history of falls due to patient alterations of awareness, patient has been treated for UTI in the past and on this visit, patient is coming in saying that he fell. He does not remember how he fell, but he knows that he has been a victim of recurrent falls. Patient states that he must have tripped and fell on his head. Otherwise, he does not recall the events. Patient is somewhat confused. Patient denies any fever, chills, vomiting, chest pain, palpitations , abdominal pain. REVIEW OF SYSTEMS: Patient admits to having head pain, otherwise as documented in HPI. All other systems were reviewed and are negative. PAST MEDICAL HISTORY: Atrial fibrillation, hypertension, hyperlipidemia, congestive heart failure, chronic kidney disease, TIA, gastroesophageal reflux disease. PAST SURGICAL HISTORY: Cardiac ablation, left total knee replacement, rotator cuff repair, cholecystectomy, retroperitoneal mass biopsy. PSYCHIATRIC HISTORY: Reviewed and negative. ALLERGIES: PENICILLIN. FAMILY HISTORY: Diabetes, hypertension runs in family. SOCIAL HISTORY: [place] Patient denies any tobacco , alcohol, or illicit drug use. CURRENT MEDICATIONS: Patient is on atorvastatin 20 mg, finasteride 5 mg, metoprolol 25 mg, terazosin 10 mg, amiodarone 100 mg, vitamin D3, ferrous sulfate 325 mg, multivitamins, mirtazapine 15 mg, Xarelto 15 mg, ranitidine 150 mg. PHYSICAL EXAMINATION: VITAL SIGNS: Blood pressure is 188/72, pulse of 88, respiratory rate of 20, O2 sat of 99. GENERAL: Patient is lying in bed, confused, but however, alert, oriented to time. Patient is able to speak in full sentences. Patient is showing signs of cognitive impairment. HEENT: Normocephalic, atraumatic. Pupils are equal, round, and react to light. Extraocular movements are intact. No scleral icterus. No conjunctival pallor. Mucous membranes are moist. NECK: Trachea is midline. Full range of motion and supple. RESPIRATORY: Lungs, clear to auscultation bilaterally. No wheezing, no rales, no rhonchi appreciated. CARDIOVASCULAR: Positive S1, S2, regular rate and rhythm. No murmurs, no gallops or rubs appreciated. ABDOMEN: Soft, nontender, nondistended. Positive bowel sounds in all quadrants. EXTREMITIES: Patient has of 5/5 upper extremity strength, 5/5 lower extremity strength. No edema noted. Able to move all extremities spontaneously. Good pulses bilaterally at the upper and lower extremities. NEUROLOGIC: Cranial nerves II through XII grossly intact. No neurologic deficits noted. SKIN: Warm, dry, and intact. IMAGING: EKG shows first-degree AV block with a rate of 90. CT brain shows cortical atrophy and deep white matter ischemic changes. Chest x-ray showed no acute process. ED COURSE: Patient was started on vancomycin, Tylenol, Levaquin. LABORATORY DATA: WBC 17.1, hemoglobin is 10.5, hematocrit is 34.0, platelet count is 248. Creatinine is 1.42, sodium is 133, potassium 4.3, BUN 22, phosphorus 2.7. AST 12, ALT 7. Urinalysis positive for nitrite and positive for leukoesterase. ASSESSMENT AND PLAN: This is an 88-year-old male with multiple comorbidities being admitted for: 1. Alterations of awareness likely due to urinary tract infection. At this point, we started the patient on aztreonam. We will continue the patient on aztreonam and will follow up on urine cultures. We will continue to treat the patient at this time. 2. Status post fall. Patient states that he was confused. He thinks he tripped and fell. Patient does not have any pain or any bruising anywhere at this time. We will continue to monitor the patient. 3. History of atrial fibrillation. We will continue patient on current medications. 4. Hyperlipidemia. We will continue patient on his home medication of Lipitor 20 mg. We will continue monitor the patient. 5. BPH. We will continue current management. 6. Gastroesophageal reflux disease. Continue patient on current management. 7. Dementia. Will continue the patient on Remeron 15 mg and continue to monitor the patient. 8. Deep venous thrombosis and gastrointestinal prophylaxis. MTDD
[2018-08-19] MEDS ORDERED: Vancomycin HCl 1 GM in Premix Bag 1 BAG IVPB SCH (07:00)
[2018-08-19] MEDS: Enoxaparin Sodium 30 MG/0.3 ML SYRINGE SC SCH (09:48)
[2018-08-19] MEDS: Famotidine 20 MG TAB PO SCH (09:48)
[2018-08-19] MEDS: Ferrous Sulfate 325 MG TAB PO SCH (09:48)
[2018-08-19] MEDS: Aspirin 81 mg Enteric Coated Tablet PO SCH (09:48)
[2018-08-19] MEDS: Terazosin HCl 5 MG CAP PO SCH (09:48)
[2018-08-19] MEDS: Multivit, Therapeutic 1 TAB PO SCH (09:49)
[2018-08-19] MEDS: Amiodarone 200 MG TAB PO SCH (09:49)
--- NOTE | 2018-08-19 11:45 | PDOC.PN ---
- Subjective Encounter Start Date: 08/19/18 Encounter Start Time: 11:43 Subjective: reports that he feels Ok.does not interact much -: denies any CP/SOB - Objective Resuscitation Status: Resuscitation Status FULL:Full Resuscitation MAR Reviewed: Yes Vital Signs & Weight: Vital Signs (12 hours) Temp Pulse Resp BP Pulse Ox 08/19/18 08:00 96 08/19/18 07:09 98.4 F 68 16 154/70 H 96 08/19/18 04:00 98.3 F 69 16 165/61 H 08/19/18 00:37 98.3 F 60 16 164/56 H 97 Weight Weight 178 lb 6 oz I&O: 08/18/18 08/19/18 08/20/18 06:59 06:59 05:59 Intake Total 251 Balance 251 Result Diagrams: 08/19/18 04:22 08/19/18 04:22 Additional Labs: Microbiology 08/18/18 19:20 Nasopharyngeal swab Influenza Types A,B Direct EIA - Final 08/18/18 17:14 Venous blood - Right Hand Blood Culture - Preliminary Specimen has been received and culture in progress. No Growth to date. 08/18/18 17:14 Venous blood - Left Arm Blood Culture - Preliminary Specimen has been received and culture in progress. No Growth to date. Phys Exam - Physical Examination Constitutional: NAD HEENT: PERRLA, moist MMs, sclera anicteric, oral pharynx no lesions Neck: no nodes, no JVD, supple, full ROM Respiratory: no wheezing, no rales, no rhonchi, clear to auscultation bilateral Cardiovascular: RRR, no significant murmur, no rub Gastrointestinal: soft, non-tender, no distention, positive bowel sounds Musculoskeletal: no edema, pulses present Neurological: non-focal, normal sensation, moves all 4 limbs Psychiatric: normal affect Deviation from normal: not orianted to place .orianted to self Skin: no rash, normal turgor, cap refill <2 seconds Dx/Plan (1) UTI (urinary tract infection) Status: Acute (2) Multiple falls Code(s): R29.6 - REPEATED FALLS Status: Acute (3) Anemia, normocytic normochromic Code(s): D64.9 - ANEMIA, UNSPECIFIED Status: Chronic (4) BPH (benign prostatic hyperplasia) Code(s): N40.0 - BENIGN PROSTATIC HYPERPLASIA WITHOUT LOWER URINRY TRACT SYMP Status: Chronic Qualifiers: Lower urinary tract symptom presence: unspecified whether lower urinary tract symptoms present Qualified Code(s): N40.0 - Benign prostatic hyperplasia without lower urinary tract symptoms (5) Dyslipidemia Code(s): E78.5 - HYPERLIPIDEMIA, UNSPECIFIED Status: Chronic (6) H/O: CVA (cerebrovascular accident) Code(s): Z86.73 - PRSNL HX OF TIA (TIA), AND CEREB INFRC W/O RESID DEFICITS Status: Chronic (7) Hypertension Code(s): I10 - ESSENTIAL (PRIMARY) HYPERTENSION Status: Chronic Qualifiers: Hypertension type: essential hypertension Qualified Code(s): I10 - Essential (primary) hypertension (8) PAF (paroxysmal atrial fibrillation) Code(s): I48.0 - PAROXYSMAL ATRIAL FIBRILLATION Status: Chronic (9) Senile dementia Code(s): F03.90 - UNSPECIFIED DEMENTIA WITHOUT BEHAVIORAL DISTURBANCE Status: Chronic - Plan continue antibiotics, respiratory therapy, incentive spirometry, out of bed/ ambulate, DVT proph w/SCDs unsure if pt from home or NH.not safe for home Dc w repeated falls -: taken off of Xarelto last admission 08/03 d/t multiple falls -: cont empiric ABx and follow Cx -: OT/PT.CM assistance for safe Dc when ready.HD stable for now -: am labs * . Review of Systems - Review of Systems ENT: negative: Ear Pain, Ear Discharge, Nose Pain, Nose Discharge, Nose Congestion, Mouth Pain, Mouth Swelling, Throat Pain, Throat Swelling, Other Respiratory: negative: Cough, Dry, Shortness of Breath, Hemoptysis, SOB with Excertion, Pleuritic Pain, Sputum, Wheezing Cardiovascular: negative: chest pain, palpitations, orthopnea, paroxysmal nocturnal dyspnea, edema, light headedness, other Gastrointestinal: negative: Nausea, Vomiting, Abdominal Pain, Diarrhea, Constipation, Melena, Hematochezia, Other Genitourinary: negative: Dysuria, Frequency, Incontinence, Hematuria, Retention , Other Musculoskeletal: negative: Neck Pain, Shoulder Pain, Arm Pain, Back Pain, Hand Pain, Leg Pain, Foot Pain, Other Skin: negative: Rash, Lesions, Robby, Bruising, Other - Medications/Allergies Allergies/Adverse Reactions: Allergies Allergy/AdvReac Type Severity Reaction Status Date / Time Penicillins Allergy Intermediate Hives Verified 02/25/18 23:18 Medications: Current Medications Acetaminophen (Tylenol) 650 mg PO Q4H PRN PRN Reason: Headache/Fever/Mild Pain (1-3) Amiodarone HCl (Cordarone) 200 mg PO DAILY [facility] Last Admin: 08/19/18 09:49 Dose: 200 mg Aspirin (Ecotrin) 81 mg PO DAILY [facility] Last Admin: 08/19/18 09:48 Dose: 81 mg Atorvastatin Calcium (Lipitor) 20 mg PO HS [facility] Bisacodyl (Dulcolax) 10 mg PO DAILYPRN PRN PRN Reason: Constipation Cholecalciferol (Vitamin D3) 5,000 units PO DAILY [facility] Last Admin: 08/19/18 09:48 Dose: 5,000 units Enoxaparin Sodium (Lovenox) 30 mg SC 0900 [facility] Last Admin: 08/19/18 09:48 Dose: 30 mg Famotidine (Pepcid) 20 mg PO QAM [facility] Last Admin: 08/19/18 09:48 Dose: 20 mg Ferrous Sulfate (Feosol) 325 mg PO DAILY [facility] Last Admin: 08/19/18 09:48 Dose: 325 mg Finasteride (Proscar) 5 mg PO HS [facility] Sodium Chloride (Normal Saline 0.9%) 1,000 mls @ 70 mls/hr IV .[id number] [facility] Last Admin: 08/19/18 05:49 Dose: 1,000 mls Aztreonam 1 gm/ Sodium (Chloride) 100 mls @ 100 mls/hr IVPB Q8HR [facility] Last Admin: 08/19/18 05:48 Dose: 100 mls Metoprolol Succinate (Toprol Xl) 25 mg PO HS [facility] Mirtazapine (Remeron) 15 mg PO HS [facility] Miscellaneous Medication (Pharmacy To Dose) 1 each IVPB PRN PRN PRN Reason: Pharmacy to dose Multivitamins (Theragran) 1 tab PO DAILY [facility] Last Admin: 08/19/18 09:49 Dose: 1 tab Ondansetron HCl (Zofran Odt) 4 mg PO Q6H PRN PRN Reason: Nausea/Vomiting Ondansetron HCl (Zofran) 4 mg IVP Q6H PRN PRN Reason: Nausea/Vomiting Senna/Docusate Sodium (Senokot S) 2 tab PO BIDPRN PRN PRN Reason: Constipation Sodium Chloride (Flush - Normal Saline) 10 ml IVF Q12HR PRN PRN Reason: Saline Flush Sodium Chloride (Flush - Normal Saline) 10 ml IVF PRN PRN PRN Reason: Saline Flush Terazosin HCl (Hytrin) 5 mg PO DAILY [facility] Last Admin: 08/19/18 09:48 Dose: 5 mg
[2018-08-19] MEDS: Finasteride 5 MG TAB PO SCH (20:59)
[2018-08-19] MEDS: Atorvastatin Calcium 20 MG TAB PO SCH (21:00)
[2018-08-19] MEDS: Mirtazapine 15 MG TAB PO SCH (21:00)
[2018-08-20] MEDS: Sodium Chloride 0.9% 1,000 ML IV SCH ×2 (02:48→15:20)
[2018-08-20] MEDS: Aztreonam 1 GM in Sodium Chloride 0.9% 100 ML IVPB SCH ×3 (05:12→21:03)
--- NOTE | 2018-08-20 09:36 | RAD ---
PORTABLE CHEST: HISTORY: Abnormal breath sounds noted on physical exam. FINDINGS: Heart size is borderline. Mediastinal structures are unremarkable. The lungs are clear of any infiltrative process. IMPRESSION: No active intrathoracic disease. POS: [facility]
[2018-08-20] MEDS: Enoxaparin Sodium 30 MG/0.3 ML SYRINGE SC SCH (09:43)
[2018-08-20] MEDS: Amiodarone 200 MG TAB PO SCH (09:44)
[2018-08-20] MEDS: Famotidine 20 MG TAB PO SCH (09:44)
[2018-08-20] MEDS: Ferrous Sulfate 325 MG TAB PO SCH (09:44)
[2018-08-20] MEDS: Terazosin HCl 5 MG CAP PO SCH (09:44)
[2018-08-20] MEDS: Saccharomyces boulardii 250 MG CAP PO SCH (09:44)
[2018-08-20] MEDS: Aspirin 81 mg Enteric Coated Tablet PO SCH (09:44)
[2018-08-20] MEDS: Multivit, Therapeutic 1 TAB PO SCH (09:45)
--- NOTE | 2018-08-20 11:16 | PDOC.PN ---
- Subjective Encounter Start Date: 08/20/18 Encounter Start Time: 11:14 Subjective: feels well. does not remeber where he is.thinks this is home -: no overnight events - Objective Resuscitation Status: Resuscitation Status FULL:Full Resuscitation MAR Reviewed: Yes Vital Signs & Weight: Vital Signs (12 hours) Temp Pulse Resp BP Pulse Ox 08/20/18 07:05 97.7 F 65 16 163/54 H 95 Weight Weight 178 lb 6 oz I&O: 08/19/18 08/20/18 08/21/18 07:59 06:59 06:59 Intake Total Balance Result Diagrams: 08/19/18 04:22 08/19/18 04:22 Additional Labs: Accuchecks 08/20/18 06:04 POC Glucose 79 Microbiology 08/18/18 19:20 Nasopharyngeal swab Influenza Types A,B Direct EIA - Final 08/18/18 18:59 Urine Straight Catheter Urine Culture - Preliminary Escherichia coli 08/18/18 17:14 Venous blood - Right Hand Blood Culture - Preliminary Specimen has been received and culture in progress. No Growth to date. 08/18/18 17:14 Venous blood - Left Arm Blood Culture - Preliminary Specimen has been received and culture in progress. No Growth to date. Laboratory Tests 08/18/18 08/19/18 17:14 04:22 Creatinine 1.42 H 1.12 Phys Exam - Physical Examination Constitutional: NAD HEENT: PERRLA, moist MMs, sclera anicteric, oral pharynx no lesions Neck: no nodes, no JVD, supple, full ROM Respiratory: no wheezing, no rales, no rhonchi, clear to auscultation bilateral Cardiovascular: RRR, no significant murmur, no rub Gastrointestinal: soft, non-tender, no distention, positive bowel sounds Musculoskeletal: no edema, pulses present Neurological: non-focal, normal sensation, moves all 4 limbs Psychiatric: normal affect Dx/Plan (1) UTI (urinary tract infection) Status: Acute (2) Multiple falls Code(s): R29.6 - REPEATED FALLS Status: Acute (3) Anemia, normocytic normochromic Code(s): D64.9 - ANEMIA, UNSPECIFIED Status: Chronic (4) BPH (benign prostatic hyperplasia) Code(s): N40.0 - BENIGN PROSTATIC HYPERPLASIA WITHOUT LOWER URINRY TRACT SYMP Status: Chronic Qualifiers: Lower urinary tract symptom presence: unspecified whether lower urinary tract symptoms present Qualified Code(s): N40.0 - Benign prostatic hyperplasia without lower urinary tract symptoms (5) Dyslipidemia Code(s): E78.5 - HYPERLIPIDEMIA, UNSPECIFIED Status: Chronic (6) H/O: CVA (cerebrovascular accident) Code(s): Z86.73 - PRSNL HX OF TIA (TIA), AND CEREB INFRC W/O RESID DEFICITS Status: Chronic (7) Hypertension Code(s): I10 - ESSENTIAL (PRIMARY) HYPERTENSION Status: Chronic Qualifiers: Hypertension type: essential hypertension Qualified Code(s): I10 - Essential (primary) hypertension (8) PAF (paroxysmal atrial fibrillation) Code(s): I48.0 - PAROXYSMAL ATRIAL FIBRILLATION Status: Chronic (9) Senile dementia Code(s): F03.90 - UNSPECIFIED DEMENTIA WITHOUT BEHAVIORAL DISTURBANCE Status: Chronic - Plan continue antibiotics, PT/OT, out of bed/ambulate, DVT proph w/SCDs cont ABx. Follow final Cx results -: OT/PT.rehab eval. -: HD stable. home meds as below -: Consult PCt for multiple hospitalizations,multiple falls,code status -: am labs * . Review of Systems - Review of Systems Other: limited due to Dementia - Medications/Allergies Allergies/Adverse Reactions: Allergies Allergy/AdvReac Type Severity Reaction Status Date / Time Penicillins Allergy Intermediate Hives Verified 02/25/18 23:18 Medications: Current Medications Acetaminophen (Tylenol) 650 mg PO Q4H PRN PRN Reason: Headache/Fever/Mild Pain (1-3) Amiodarone HCl (Cordarone) 200 mg PO DAILY [facility] Last Admin: 08/20/18 09:44 Dose: 200 mg Aspirin (Ecotrin) 81 mg PO DAILY [facility] Last Admin: 08/20/18 09:44 Dose: 81 mg Atorvastatin Calcium (Lipitor) 20 mg PO HS [facility] Last Admin: 08/19/18 21:00 Dose: 20 mg Bisacodyl (Dulcolax) 10 mg PO DAILYPRN PRN PRN Reason: Constipation Cholecalciferol (Vitamin D3) 5,000 units PO DAILY [facility] Last Admin: 08/20/18 09:45 Dose: 5,000 units Enoxaparin Sodium (Lovenox) 30 mg SC 0900 [facility] Last Admin: 08/20/18 09:43 Dose: 30 mg Famotidine (Pepcid) 20 mg PO QAM [facility] Last Admin: 08/20/18 09:44 Dose: 20 mg Ferrous Sulfate (Feosol) 325 mg PO DAILY [facility] Last Admin: 08/20/18 09:44 Dose: 325 mg Finasteride (Proscar) 5 mg PO HS [facility] Last Admin: 08/19/18 20:59 Dose: 5 mg Sodium Chloride (Normal Saline 0.9%) 1,000 mls @ 70 mls/hr IV .[id number] [facility] Last Admin: 08/20/18 02:48 Dose: Not Given Aztreonam 1 gm/ Sodium (Chloride) 100 mls @ 100 mls/hr IVPB Q8HR [facility] Last Admin: 08/20/18 05:12 Dose: 100 mls Metoprolol Succinate (Toprol Xl) 25 mg PO HS [facility] Last Admin: 08/19/18 21:00 Dose: 25 mg Mirtazapine (Remeron) 15 mg PO [facility] Last Admin: 08/19/18 21:00 Dose: 15 mg Miscellaneous Medication (Pharmacy To Dose) 1 each IVPB PRN PRN PRN Reason: Pharmacy to dose Multivitamins (Theragran) 1 tab PO DAILY [facility] Last Admin: 08/20/18 09:45 Dose: 1 tab Ondansetron HCl (Zofran Odt) 4 mg PO Q6H PRN PRN Reason: Nausea/Vomiting Ondansetron HCl (Zofran) 4 mg IVP Q6H PRN PRN Reason: Nausea/Vomiting Saccharomyces Boulardii (Florastor) 250 mg PO DAILY [facility] Last Admin: 08/20/18 09:44 Dose: 250 mg Senna/Docusate Sodium (Senokot S) 2 tab PO BIDPRN PRN PRN Reason: Constipation Sodium Chloride (Flush - Normal Saline) 10 ml IVF Q12HR PRN PRN Reason: Saline Flush Sodium Chloride (Flush - Normal Saline) 10 ml IVF PRN PRN PRN Reason: Saline Flush Terazosin HCl (Hytrin) 5 mg PO DAILY [facility] Last Admin: 08/20/18 09:44 Dose: 5 mg
[2018-08-20] MEDS: Finasteride 5 MG TAB PO SCH (20:55)
[2018-08-20] MEDS: Atorvastatin Calcium 20 MG TAB PO SCH (20:55)
[2018-08-20] MEDS: Mirtazapine 15 MG TAB PO SCH (20:56)
[2018-08-21 04:51] LABS: #Basophils 0.1 thou/uL (0.0-0.2); #Eosinphils 0.9 thou/uL (0.0-0.7); #Lymphocytes 1.7 thou/uL (1.20-3.40); #Monocytes 0.9 thou/uL (0.11-0.59); #Neutrophils 5.5 thou/uL (1.40-6.50); %Basophils 0.7 % (0.0-1.0); %Eosinophils 10.2 % (0.0-10.0); %Monocytes 9.5 % (0.0-10.0); %Neutrophils 60.6 % (42.0-75.0); Hemoglobin 9.7 g/dL (14.0-18.0); Mean Corpuscular HGB CONC 30.8 g/dL (32.0-36.0); Mean Corpuscular Hemoglobin 25.4 pg (27.0-31.0); Mean Corpuscular Volume 82.3 fL (78.0-98.0); Mean Platelet Volume 6.9 fL (7.4-10.4); Platelet Count 335 thou/uL (130-400); RBC Distribution Width 13.6 % (11.5-14.5); Red Blood Cell (RBC) Count 3.83 mill/uL (4.70-6.10); White Blood Cell (WBC) Count 9.1 thou/uL (4.8-10.8)
[2018-08-21 05:09] LABS: Anion Gap 8 mmol/L (10-20); BUN (Urea Nitrogen) 19 mg/dL (8.4-25.7); Calc. Creatinine Clearance 43 mL/min (70-130); Calcium 9.2 mg/dL (7.8-10.44); Carbon Dioxide 28 mmol/L (23-31); Chloride 106 mmol/L (98-107); Estimated GFR-MDRD 49; Glucose 91 mg/dL (83-110); Sodium 138 mmol/L (136-145)
[2018-08-21] MEDS: Aztreonam 1 GM in Sodium Chloride 0.9% 100 ML IVPB SCH ×2 (06:08→12:40)
[2018-08-21] MEDS: Sodium Chloride 0.9% 1,000 ML IV SCH (08:27)
[2018-08-21] MEDS: Enoxaparin Sodium 30 MG/0.3 ML SYRINGE SC SCH (08:29)
[2018-08-21] MEDS: Terazosin HCl 5 MG CAP PO SCH (08:29)
[2018-08-21] MEDS: Famotidine 20 MG TAB PO SCH (08:29)
[2018-08-21] MEDS: Aspirin 81 mg Enteric Coated Tablet PO SCH (08:29)
[2018-08-21] MEDS: Amiodarone 200 MG TAB PO SCH (08:30)
[2018-08-21] MEDS: Multivit, Therapeutic 1 TAB PO SCH (08:30)
[2018-08-21] MEDS: Saccharomyces boulardii 250 MG CAP PO SCH (08:30)
[2018-08-21] MEDS: Ferrous Sulfate 325 MG TAB PO SCH (08:30)
--- NOTE | 2018-08-21 09:12 | PQF ---
CLINICAL DOCUMENTATION IMPROVEMENT CLARIFICATION FORM: ICD-10 Updated PLEASE DO AN ADDENDUM TO THE PROGRESS NOTE WITH ANY DOCUMENTATION UPDATES OR ADDITIONS AND CARRY THROUGH TO DC SUMMARY. THANK YOU. DATE: 08/21 ATTN: DR. ANNABELLE MEDINA Please exercise your independent, professional judgment in responding to the clarification form. Clinical indicators are provided on the bottom of this form for your review. Please check appropriate box(es): [ ] Sepsis due to: (Pna, UTI, gangrenous gall bladder, etc.) [ x] Localized infection without sepsis [ ] Sepsis Resolved [ ] Sepsis Ruled Out [ ] Other diagnosis [ ] Unable to determine For continuity of documentation, please document condition throughout progress notes and discharge summary. Thank You. CLINICAL INDICATORS - SIGNS / SYMPTOMS / LABS ER PRESENTATION 08/18: SEPSIS ALERT T: 102.8 RR: 23 WBC: 17.1 ER PHYSICIAN DIAGNOSES: SEPSIS, UTI, FALL RISK FACTOR: UTI (E COLI) TREATMENTS: IV ANTIBIOTICS (AZTREONAM 08/19 - PRESENT; VANCOMYCIN & LEVAQUIN 08/18 IN ER) IVF (NS 08/18 - PRESENT; 2L NS IN ER) THANK YOU! Suri (This form is maintained as a part of the permanent medical record) 2014 [employer]. All Rights Reserved Suri Wilson RN, BSN [email or web address] Office: [phone] [facility]
[2018-08-21 12:01] VITALS: TEMP 97.8
[2018-08-21 12:39] VITALS: BP 164/65
--- NOTE | 2018-08-21 14:10 | DIS ---
DATE OF ADMISSION: 08/19/2018 DATE OF DISCHARGE: 08/21/2018 CONDITION AT THE TIME OF DISCHARGE: Stable and improved. DISCHARGE DISPOSITION: Back to [facility] where the patient is a jemma -term resident. PRIMARY CARE PHYSICIAN: Jefferson Michel M.D. DISCHARGE DIAGNOSES: 1. Urinary tract infection without evidence of sepsis. 2. Altered mental status secondary to #1. 3. Severe Alzheimer's dementia. 4. Multiple falls. 5. Chronic normocytic normochromic anemia. 6. Benign prostatic hypertrophy. 7. Dyslipidemia. 8. History of cerebrovascular accident. 9. Hypertension. 10. Chronic paroxysmal atrial fibrillation, not a candidate for anticoagulation due to multiple fall s. DISCHARGE MEDICATIONS: Resume home medications as per the HPI. Medication reconciliation was done. New medications, nitrofurantoin 100 mg q.i.d. for 10 days and Florastor 250 mg daily for 14 days. PROCEDURES DONE IN THE HOSPITAL: 1. CT scan of the brain upon presentation, which shows chronic atrophy and deep white matter ischemi c changes. All chronic, nothing acute. 2. Multiple chest x-rays. HISTORY OF PRESENTING ILLNESS: Mr. Heard is an 88-year-old male who is a resident of [facility] with history of senile dementia as well as paroxysmal atrial fibrillation, hypertension, dys lipidemia, and multiple falls who presented to the emergency room once again for a fall and altered m ental status. He was hemodynamically stable at the time of presentation with albeit little bit hyper tensive with blood pressure of 188/72. His EKG showed first degree AV block. CT scan showed no acut e changes. Chest x-ray was without any acute process. His creatinine was 1.42 and UA positive for n itrite and leukocyte esterase. He was admitted with a presumptive diagnosis of urinary tract infecti on and was started on empiric antibiotics and cultures were sent. Please see admission history and p hysical for further details. HOSPITAL COURSE: The patient had significant improvement in his symptoms and quickly returned back t o his baseline self. It was difficult to assess; however, because of his underlying dementia. His l eukocytosis improved WBCs of 17.1-9.1. His blood pressure stabilized as well. His creatinine improv ed from 1.42-1.37. His urine culture showed E. coli and his blood culture was negative. This E. col i was resistant to Bactrim and quinolones and ampicillin. [facility] and [facility] on nitrofurantoin. As of this morning, the patient is stable and can be transitioned to oral antibiotics. Rehab was arr anged back in [facility] after discussion with the family and block and case maker. He was seen and examined prior to discharge. PHYSICAL EXAMINATION: VITAL SIGNS: This morning, temperature 97.8, pulse of 65, respirations 19, saturating 95% on room ai r, blood pressure 164/65. GENERAL: No acute distress, awake, alert, oriented to self. CHEST: Clear to auscultation bilaterally. Rate and rhythm is regular. Moving all 4 extremities whe n asked to. LABORATORY DATA: Blood culture remained negative x2. Influenza rapid test negative. Total time spent 35 minutes.
== END 2018-08-21 12:55 | DRG 690 ==
LOC: ERS 16:20 → T4-B 21:51
PROVIDERS: ADMIT Internal Medicine; ATTEND Internal Medicine
DX: N39.0 Urinary tract infection, site not specified (principal); I13.0 Hypertensive heart and chronic kidney disease with heart failure and stage 1 through stage 4 chronic kidney disease, or unspecified chronic kidney disease; I50.32 Chronic diastolic (congestive) heart failure; E78.5 Hyperlipidemia, unspecified; N18.9 Chronic kidney disease, unspecified; K21.9 Gastro-esophageal reflux disease without esophagitis; N40.0 Benign prostatic hyperplasia without lower urinary tract symptoms; D64.9 Anemia, unspecified; I48.0 Paroxysmal atrial fibrillation; G30.1 Alzheimer's disease with late onset; F02.80 Dementia in other diseases classified elsewhere, unspecified severity, without behavioral disturbance, psychotic disturbance, mood disturbance, and anxiety; I44.0 Atrioventricular block, first degree; B96.20 Unspecified Escherichia coli [E. coli] as the cause of diseases classified elsewhere; R29.6 Repeated falls; Z79.01 Long term (current) use of anticoagulants; Z88.0 Allergy status to penicillin; Z86.73 Personal history of transient ischemic attack (TIA), and cerebral infarction without residual deficits; Z96.652 Presence of left artificial knee joint; Z83.3 Family history of diabetes mellitus; Z82.49 Family history of ischemic heart disease and other diseases of the circulatory system
CPT/HCPCS: 36415; 36416; 51701; 70450; 71045; 80048; 80053; 80069; 81003; 81015; 83605; 85025; 87040; 87077; 87086; 87186; 87804; 93005; 96365; 96366; 96367; A4353; G8978-GP-CL; G8979-GP-CK; G8987-GO-CM; G8988-GO-CJ; J1650; J1956; J3370; J3490; J7050

== ENCOUNTER 2018-12-14 08:30 | Outpatient (CLI) | payer MEDICARE, MEDICAID ==
[2018-12-14] MEDS ORDERED: ISOVUE-370 76%-LOCM 1 ML ONE (10:08)
--- NOTE | 2018-12-14 12:30 | CT ---
CT OF ABDOMEN PERFORMED WITH AND WITHOUT CONTRAST: Comparison: 04-30-18 History: Liver mass follow up. There is a persistent and essentially stable appearance to a right sided effusion. There is right low er lobe atelectasis. No pulmonary nodules are identified. Along the posterior margin of the liver ext ending from the diaphragm inferiorly posterior to the pararenal space is a complex mass-like area whi ch has cystic and solid components. It is difficult to measure and compare as compared to the previou s examination. Comparison will be based on the axial images. There is a more superiorly located colle ction which is more fluid predominant. It measures approximately 5.7 cm in transverse and 3.2 cm in A P dimension which is felt to be fairly similar to the prior examination although perhaps slightly min imally larger. The second collection which has more of a solid component to it is directly inferior t o this although this area appears to have more low attenuation or cystic central component than on th e prior exam. I would say on the prior study this measured approximately 3.4 cm AP x 6.2 cm and on to day's study has a fairly similar measurements with measurements of 3.6 x 6.2 cm. There is a one compo nent of this which is a more solid appearing component seen along the inferior margin on Axial image 26 that does appear more prominent than on the prior examination. There is a third more lateral compo nent, this lateral component measures 1.8 x 8.3 cm in size, perhaps slightly larger than the prior ex amination with measurements of approximately 1.7 x 7.2 cm. All of these measurements are somewhat arb itrary but there certainly no decrease in size since the prior exam. Within the left pleural space in more of a left paravertebral location is some higher attenuation density seen on Axial image 13 and Coronal image 38. I cannot exclude that this is extension above the diaphragm but it was present on t he prior study and is felt to be fairly stable. The spleen is within normal limits. The pancreas is n ormal. The gallbladder has been removed. The right and left adrenal glands and right and left kidneys are normal in appearance. No significant periaortic or mesenteric adenopathy. IMPRESSION: Right sided pleural effusion with a complex cystic and solid area along the posterior border of the r ight lobe of the liver. It is not decreased in size, perhaps slightly increased in size, as compared to the prior examination. It has a very complex multilobulated appearance. POS: [facility]
== END 2018-12-14 08:31 | disposition home or self-care (01) ==
LOC: BICCT 08:30
PROVIDERS: ATTEND Internal Medicine
DX: R16.0 Hepatomegaly, not elsewhere classified (principal); J90 Pleural effusion, not elsewhere classified; Z79.899 Other long term (current) drug therapy
CPT/HCPCS: 74170; 82565; Q9966

== ENCOUNTER 2019-01-08 19:46 | Emergency (ER) | payer MEDICARE, MEDICAID ==
[2019-01-08] MEDS ORDERED: Adacel (T-DAP) 0.5 ML SYRINGE ONE (20:07)
[2019-01-08] MEDS ORDERED: Lidocaine 1% PF 5 ML VIAL ONE (20:41)
--- NOTE | 2019-01-08 20:45 | RAD ---
RADIOGRAPH RIGHT GREAT TOE THREE VIEWS: History: 88-year-old male status post blunt trauma to the great toe. FINDINGS: Nonspecific ill-defined lucencies at the proximal metaphysis of the first distal phalanx. No displace d fracture identified. Bony hypertrophy and irregularity of the medial aspect of the head of the firs t metatarsal without hallux valgus. No high grade joint space narrowing. Bony hypertrophy of the base of the first distal phalanx. Soft tissue enlargement of the great toe. IMPRESSION: No displaced acute fracture identified. However, there are nonspecific lucencies at the distal phalan x, and therefore, short interval follow up radiograph is recommended in one week. POS: [facility]
[2019-01-08] MEDS ORDERED: Bacitracin Zinc 1 Packet ONE (20:55)
== END 2019-01-08 22:18 ==
LOC: ERS 19:46
DX: B35.1 Tinea unguium (principal); I48.91 Unspecified atrial fibrillation; J45.909 Unspecified asthma, uncomplicated; I12.9 Hypertensive chronic kidney disease with stage 1 through stage 4 chronic kidney disease, or unspecified chronic kidney disease; N18.9 Chronic kidney disease, unspecified; Z86.73 Personal history of transient ischemic attack (TIA), and cerebral infarction without residual deficits; Z87.891 Personal history of nicotine dependence; Z79.82 Long term (current) use of aspirin; Z79.899 Other long term (current) drug therapy
CPT/HCPCS: 11750; 90471; 90715; J2001